=== PATIENT | male | born 1980 | race Caucasian/White ===

== ENCOUNTER 2019-02-01 11:39 | Emergency (ER) | payer OTHER, SELFPAY ==
[2019-02-01 11:42] VITALS: BP 145/85; PULSE 124; RESP 16; TEMP 36.5; O2SAT 99; BMI 32.5
[2019-02-01] MEDS: TET,DIPH,PERTUSS(ACELL),VAC/PF 0.5 ML SYRINGE IM (11:50)
--- NOTE | 2019-02-01 11:55 | PC.NURSE ---
Pt has laceration through nail bed
--- NOTE | 2019-02-01 12:09 | DI.RAD.S_ITS ---
PROCEDURE: XR FINGER LT MIN 2V INDICATIONS: middle finger injury TECHNIQUE: AP hand, 2 views of the left third finger(s) acquired. COMPARISON: None. FINDINGS: Bones: No fractures or dislocations. No suspicious bony lesions. Short fifth metacarpal. Soft tissues: No suspicious soft tissue calcifications. IMPRESSION: No acute fracture. No osseous lesion. If symptoms or clinical suspicion for pathology persists, repeat plain films, or advanced imaging (CT, bone scan, or MRI) may be helpful for further assessment. Dictated by: Afsaneh Preston M.D. on 02/01/2019 at 11:36 Approved by: Afsaneh Preston M.D. on 02/01/2019 at 11:37
[2019-02-01] MEDS: KETOROLAC 60 MG/2 ML VIAL IM (12:44)
--- NOTE | 2019-02-01 13:08 | ED_ITS ---
HPI - Wound/Laceration <JUAN MANUEL Garza - Last Filed: 02/01/19 13:50> General Chief Complaint: Wound/Laceration Stated Complaint: Middle finger lt hand cut Time Seen by Provider: 02/01/19 12:04 Source: patient Mode of arrival: ambulatory Limitations: no limitations History of Present Illness HPI narrative: The patient is a 38-year-old male current smoker who presents after chief complaint of a laceration to his left middle finger. 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 He does not know when his last tetanus was. He states he has full range of motion. He states he washed the laceration out with soap and water immediately after. He states his cut was a flap. Related Data Allergies Allergy/AdvReac Type Severity Reaction Status Date / Time No Known Drug Allergies Allergy Verified 02/01/19 11:42 Review of Systems <JUAN MANUEL Garza - Last Filed: 02/01/19 13:50> Review of Systems GENERAL: Denies chills, fatigue, malaise, fever, sweats. HEENT: Denies sinus pain, ear pain, sore throat, difficulty swallowing, dizziness. RESPIRATORY: Denies dyspnea, cough, wheezing, hemoptysis, sputum. CARDIOVASCULAR: Denies chest pain, palpitations, orthopnea, edema, GASTROINTESTINAL: Denies nausea, vomiting, abdominal pain, diarrhea, constipation, melena. : Denies dysuria, frequency, incontinence, hematuria, urinary retention. MUSCULOSKELETAL: See HPI SKIN: See HPI NEUROLOGIC: Denies weakness, headache, numbness, change in speech, confusion, seizures, incoordination. PSYCHIATRIC: No concerning psychosocial issues. 12 point review of systems is negative except for those stated above PFSH <JUAN MANUEL Garza - Last Filed: 02/01/19 13:50> Medical History Medical history non-contributory (Acute) Social History Smoking Status: Current every day smoker Social History Smoking Status: Current every day smoker Exam <SONIA GarzaBC - Last Filed: 02/01/19 13:50> Narrative Exam Narrative: GENERAL: This is a well-nourished, well-developed patient, appears anxious HEAD: Atraumatic. Normocephalic. No temporal or scalp tenderness. EYES: Pupils equal round and reactive. Extraocular motions intact. No scleral icterus. No injection or drainage. ENT: Nose without bleeding, purulent drainage or septal hematoma. Throat without erythema, tonsillar hypertrophy or exudate. Uvula midline. Airway patent. NECK: Trachea midline. No JVD or lymphadenopathy. Supple, nontender, no meningeal signs. CARDIOVASCULAR: Regular rate and rhythm RESPIRATORY: No cough. No increased respiratory effort. No accessory muscle use. EXTREMITIES: Full range of motion noted left middle finger. Capillary refill less than 2 seconds. BACK: Nontender without deformity or crepitance. No flank tenderness. NEURO: AOx3. SKIN: Laceration noted through center of left middle finger nail, creating a flap of 0.5 cm of nail connected at the lateral side. No active bleeding. No spreading redness. Capillary refill less than 2 seconds. Flap appears to be about 2-3 mm stay. Initial Vital Signs Initial Vital Signs: Vital Signs Temperature 97.7 F 02/01/19 11:42 Pulse Rate 124 H 02/01/19 11:42 Respiratory Rate 16 02/01/19 11:42 Blood Pressure 145/85 H 02/01/19 11:42 Pulse Oximetry 99 02/01/19 11:42 <Genoveva Richter MD - Last Filed: 02/01/19 19:55> Initial Vital Signs Initial Vital Signs: Vital Signs Temperature 97.7 F 02/01/19 11:42 Pulse Rate 124 H 02/01/19 11:42 Respiratory Rate 16 02/01/19 11:42 Blood Pressure 145/85 H 02/01/19 11:42 Pulse Oximetry 99 02/01/19 11:42 Course <SONIA GarzaBC - Last Filed: 02/01/19 13:50> Orders Ordered: ED Orders 02/01/19 12:09 XR finger LT min 2V Stat Discontinued Medications Diphtheria/Tetanus/Acell Pertussis (Adacel) 0.5 ml IM .ONCE ONE Stop: 02/01/19 11:45 Last Admin: 02/01/19 11:50 Dose: 0.5 ml Ketorolac Tromethamine (Toradol) 60 mg IM NOW ONE Stop: 02/01/19 12:25 Last Admin: 02/01/19 12:44 Dose: 60 mg Vital Signs - 8 hr 02/01/19 13:21 Pulse Rate 91 H Blood Pressure 143/91 H Pulse Oximetry 97 <Genoveva Richter MD - Last Filed: 02/01/19 19:55> Orders Ordered: ED Orders 02/01/19 12:09 XR finger LT min 2V Stat Discontinued Medications Diphtheria/Tetanus/Acell Pertussis (Adacel) 0.5 ml IM .ONCE ONE Stop: 02/01/19 11:45 Last Admin: 02/01/19 11:50 Dose: 0.5 ml Ketorolac Tromethamine (Toradol) 60 mg IM NOW ONE Stop: 02/01/19 12:25 Last Admin: 02/01/19 12:44 Dose: 60 mg Vital Signs - 8 hr 02/01/19 13:21 Pulse Rate 91 H Blood Pressure 143/91 H Pulse Oximetry 97 MDM - Wound/Laceration <JUAN MANUEL Garza - Last Filed: 02/01/19 13:50> Imaging Data finger xray : Radiologist's impression: [place] [address] XRay Report Signed Patient: John Paul Wright PMR#: [id number] : 1980Acct:[id number] Age/Sex: 38 / MDate of Service: 02/01/19 Loc: ED Accession Number: [id number] Procedure: XR finger LT min 2V Ordering Provider: Amisha Fernandez PROCEDURE: XR FINGER LT MIN 2V INDICATIONS: middle finger injury TECHNIQUE: AP hand, 2 views of the left third finger(s) acquired. COMPARISON: None. FINDINGS: Bones: No fractures or dislocations. No suspicious bony lesions. Short fifth metacarpal. Soft tissues: No suspicious soft tissue calcifications. IMPRESSION: No acute fracture. No osseous lesion. If symptoms or clinical suspicion for pathology persists, repeat plain films, or advanced imaging (CT, bone scan, or MRI) may be helpful for further assessment. Dictated by: Afsaneh Preston M.D. on 02/01/2019 at 11:36 Approved by: Afsaneh Preston M.D. on 02/01/2019 at 11:37 [facility] [place] Narrative Medical decision making narrative: The patient is a 38-year-old male who presents with a chief complaint of a laceration. Given his presentation, and unable to close the laceration his tetanus was updated. His x-ray was negative. The wound was cleansed with Hibiclens and dressed by nursing. Discussed at length following up with a [facility] [employer] provider for follow-up as well as monitoring for signs and symptoms of infection such as redness pus etc. Patient has no questions or concerns upon discharge. Discussed coming back to the ER for any acute concerns. Discharge Plan Departure Patient Disposition: Home Clinical Impression: Laceration Discharge Date/Time: 02/01/19 13:21 Interventions: ED Discharge Assessment Last Done: 02/01/19 13:21 Instructions: DI for Minor Laceration Activity Restrictions/Additional Instructions: Please monitor your laceration for signs and symptoms of infection such as redness, pus. Please come back to the emergency department for any acute concerns. Please contact [facility] [employer] for follow-up. Today we updated your tetanus. Please do not submerge your cut and dirty water such as just water.
[2019-02-01 13:21] VITALS: BP 143/91; PULSE 91; O2SAT 97
== END 2019-02-01 13:21 | disposition home or self-care (01) ==
PROVIDERS: Emergency Provider Nurse Practitioner Family
DX: S61.213A Laceration without foreign body of left middle finger without damage to nail, initial encounter (principal); W26.8XXA Contact with other sharp object(s), not elsewhere classified, initial encounter; Y99.0 Civilian activity done for income or pay; Z23 Encounter for immunization
CPT/HCPCS: 73140; 90471; 96372; 99283; 90715; J1885

== ENCOUNTER → 2019-05-15 10:03 | Outpatient (CLI) | payer OTHER, MEDICAID, SELFPAY ==
--- NOTE | 2019-05-15 10:04 | DI.RAD.S_ITS ---
PROCEDURE: XR THORACIC SPINE 3V INDICATIONS: Tenderness to thoracic spine, felt a pop TECHNIQUE: 3 views of the thoracic spine were acquired. COMPARISON: None. FINDINGS: Bones: No fractures or dislocations. No suspicious bony lesions. 12 pairs of ribs are noted, and appear intact where visualized. Mild multilevel degenerative disc changes. Soft tissues: No paravertebral stripe thickening. IMPRESSION: 1. Mild multilevel degenerative disc disease. 2. No fracture. No acute osseous lesion. If symptoms and/or clinical suspicion for pathology persists, evaluation with MRI may be helpful for further assessment. Dictated by: Georgina May MD, PhD on 05/15/2019 at 10:22 Approved by: Georgina May MD, PhD on 05/15/2019 at 10:23
--- NOTE | 2019-05-15 10:04 | DI.RAD.S_ITS ---
PROCEDURE: XR LUMBAR SPINE 2-3V INDICATIONS: Tenderness to spine, felt a pop TECHNIQUE: 3 views of the lumbar spine were acquired. COMPARISON: None. FINDINGS: Bones: 5 [id number] vertebrae are present with vestigial 12th ribs. There is normal bony alignment. No vertebral body compression fractures. No suspicious bony lesions. Soft tissues: Overlying bowel gas pattern is normal. A cluster of calcifications project over the left renal shadow. IMPRESSION: 1. No fracture. No acute osseous lesion. If symptoms and/or clinical suspicion for pathology persists, evaluation with MRI may be helpful for further assessment. 2. Possible left renal stones. If there is clinical concern for pathology related to renal stones, CT KUB should be considered for further evaluation. Dictated by: Georgina May MD, PhD on 05/15/2019 at 10:20 Approved by: Georgina May MD, PhD on 05/15/2019 at 10:21
== END ==
PROVIDERS: PCP Nurse Practitioner; Visit Provider Nurse Practitioner
DX: M54.9 Dorsalgia, unspecified (principal); M51.34 Other intervertebral disc degeneration, thoracic region
CPT/HCPCS: 72072; 72100

== ENCOUNTER → 2019-06-26 08:51 | Outpatient (CLI) | payer OTHER, MEDICAID, SELFPAY ==
[2019-06-26 10:06] LABS: Add Manual Diff / Slide Review NO; Alanine Aminotransferase 33 IU/L (<50); Albumin 4.7 g/dL (3.5-5.0); Albumin Globulin Ratio 1.6 (1.0-2.8); Alkaline Phosphatase 88 U/L (38-126); Aspartate Aminotransferase 28 IU/L (17-59); BUN Creatinine Ratio 16.7 (6-22); Basophils Absolute Auto 100 /uL (0-100); Basophils Percent Auto 0.6 % (0-2); Bilirubin Total 0.7 mg/dL (0.2-1.3); Blood Urea Nitrogen 15 mg/dL (9-20); Calcium 9.3 mg/dL (8.4-10.2); Carbon Dioxide 28 mmol/L (22-32); Chloride 105 mmol/L (98-107); Cholesterol 238 mg/dL (140-199); Eosinophils Absolute Auto 300 /uL (0-450); Eosinophils Percent Auto 2.7 % (2-4); Estimated Glomerular Filt Rate > 60.0 mL/min (>60); Glucose 102 mg/dL (70-100); HDL Cholesterol 34 mg/dL (40-60); HEMOLYSIS < 15 (0-50); Hematocrit 45.9 % (41-53); Hemoglobin 15.5 g/dL (13.5-17.5); LDL Cholesterol Calculated 173 mg/dL (<100); Lymphocytes Absolute Auto 3300 /uL (1100-4500); Lymphocytes Percent Auto 33.8 % (25-40); Mean Corpuscular HGB Conc 33.9 % (30-36); Mean Corpuscular Hemoglobin 30.1 PG (26-34); Monocytes Absolute Auto 700 /uL (0-900); Monocytes Percent Auto 6.7 % (3-14); Neutrophils Absolute Auto 5500 /uL (1500-7000); Neutrophils Percent Auto 56.2 % (50-75); Platelet Count 292 X10^3/uL (150-400); Potassium 4.9 mmol/L (3.4-5.1); Red Blood Cell Count 5.16 X10^6/uL (4.5-5.9); Red Cell Distribution Width 12.8 % (11.6-14.8); Sodium 140 mmol/L (137-145); Total Protein 7.7 g/dL (6.3-8.2); Triglycerides 153 mg/dL (35-150); White Blood Cell Count 9.7 X10^3/uL (4.5-11.0)
[2019-06-26 10:44] LABS: Free T3, Triiodothyronine Free 4.17 pg/mL (2.77-5.27)
[2019-06-26 10:58] LABS: Thyroid Stimulating Hormone 1.49 uIU/mL (0.47-4.68)
== END ==
PROVIDERS: PCP Nurse Practitioner; Visit Provider Nurse Practitioner
DX: Z00.00 Encounter for general adult medical examination without abnormal findings (principal)
CPT/HCPCS: 36415; 80053; 80061; 84439; 84443; 84481; 85025

== ENCOUNTER → 2019-07-04 10:52 | Outpatient (CLI) | payer OTHER, MEDICAID, SELFPAY ==
--- NOTE | 2019-07-04 10:55 | DI.MRI.S_ITS ---
PROCEDURE: MR LUMBAR SPINE WO CON INDICATIONS: back pain TECHNIQUE: Noncontrast sagittal T1 spin echo and T2 fast echo, sagittal STIR, axial T1 and T2 fast spin echo through the lumbar spine. In cases with scoliosis, additional coronal T2 fast spin echo may be performed. COMPARISON: [facility], CR, XR LUMBAR SPINE 2-3V, 05/15/2019, 10:05. FINDINGS: Image quality: Excellent. Alignment and Curvature: There is normal bony alignment. Bone Marrow: Marrow is of normal overall signal. No acute vertebral body compression fractures. Spinal Cord: Conus medullaris terminates at the T12-L1 level. Visualized cord demonstrates normal signal and size. Paraspinous Soft Tissues: No paravertebral masses. T12-L1: No canal stenosis or foraminal stenosis. Unremarkable facet joints. L1-L2: Normal appearance. L2-L3: Normal appearance. L3-L4: Normal appearance L4-L5: Mild diffuse disc bulge. Disc material abuts the bilateral L5 nerve roots in the lateral recesses. Mild facet hypertrophy. Mild canal stenosis. No foraminal stenosis. L5-S1: No canal stenosis or foraminal stenosis. IMPRESSION: 1. At L4-L5, there is mild disc bulge and mild facet hypertrophy. There is mild canal stenosis. Disc material abuts the bilateral L5 nerve roots in the lateral recesses. Dictated by: Goyo Castro M.D. on 07/04/2019 at 21:10 Approved by: Goyo Castro M.D. on 07/04/2019 at 21:14
== END ==
PROVIDERS: PCP Nurse Practitioner; Visit Provider Nurse Practitioner
DX: M54.9 Dorsalgia, unspecified (principal); M51.36 Other intervertebral disc degeneration, lumbar region; M51.26 Other intervertebral disc displacement, lumbar region
CPT/HCPCS: 72148

== ENCOUNTER 2019-08-19 11:43 | Emergency (ER) | payer OTHER, MEDICAID, SELFPAY ==
[2019-08-19 11:45] VITALS: BP 152/99; PULSE 138; RESP 18; O2SAT 98
--- NOTE | 2019-08-19 11:48 | ED_ITS ---
HPI - Arrhythmia/Palpitations General Chief Complaint: Arrhythmia/Palpitations Stated Complaint: HEART FLUTTERING Time Seen by Provider: 08/19/19 11:47 Source: patient Mode of arrival: Ambulatory Limitations: no limitations History of Present Illness HPI narrative: Patient is a 38-year-old male who presents with heart palpitations ongoing for the last 3 days. He says they come and go he denies any passing out or chest pain. He just feels like his heart is racing. He admits to drinking at least 3 cups of coffee a day but not more than that. He denies any chest pain or shortness of breath. He still felt initially when he 1st came in was noted to have heart rate in the 130s in a sinus rhythm. It is decreased on the monitor to 98 and then does come up into the 110's while talking to him. He says he is quite anxious and nervous about things. He has been feeling a little nauseous often on doesn't feel nauseated now he has no abdominal pain. He has no weakness numbness or tingling. MD complaint: heart racing Onset (ago): day(s) (3) Duration: intermittent Severity: mild Context: occurred during rest and occurred during exertion Associated symptoms: denies other symptoms Related Data Home Medications Medication Instructions Recorded Confirmed baclofen 5 mg PO TID-QID PRN 08/19/19 Previous Rx's Medication Instructions Recorded citalopram 10 mg tablet 10 mg PO DAILY #30 tab 07/10/19 gabapentin 100 mg capsule 100 mg PO BEDTIME #30 cap 07/23/19 Allergies Allergy/AdvReac Type Severity Reaction Status Date / Time No Known Drug Allergies Allergy Verified 08/19/19 11:53 Review of Systems Review of Systems Narrative: GENERAL: Denies chills, fatigue, malaise, fever, sweats, travel HEENT: Denies sinus pain, ear pain, sore throat, difficulty swallowing, neck pain RESPIRATORY: Denies dyspnea, cough, wheezing, hemoptysis, sputum. CARDIOVASCULAR: See HPI GASTROINTESTINAL: Denies nausea, vomiting, abdominal pain, diarrhea, constipation, melena. : Denies dysuria, frequency, incontinence, hematuria, urinary retention, flank pain. MUSCULOSKELETAL: Denies weakness, joint pain, or bony pain SKIN: No rash, no erythema, no pruritus NEUROLOGIC: Denies weakness, dizziness, headache, numbness, change in speech, confusion PSYCHIATRIC: No concerning psychosocial issues. 12 point review of systems is negative except for those stated above and HPI Patient History Medical History Anxiety (Chronic) Bee sting allergy (Acute) Chronic pain of thorax (Acute) Depression (Chronic) Medical history non-contributory (Acute) Surgical History Anesthesia (Inactive) History of foot surgery (Resolved ~1992) Family History Father History of heart disease Mother ETOH abuse History of heart disease Brother Alcoholism Grandfather Cancer History of heart disease Grandmother History of heart disease Social History Smoking Status: Current every day smoker Smoking Status: Current every day smoker alcohol intake frequency: holidays/special occasions only Substance Use Type: does not use and marijuana Exam Initial Vital Signs Initial Vital Signs: Vital Signs Pulse Rate 138 H 08/19/19 11:45 Respiratory Rate 18 08/19/19 11:45 Blood Pressure 152/99 H 08/19/19 11:45 Pulse Oximetry 98 08/19/19 11:45 GENERAL: Well-appearing, well-nourished and in no acute distress. HEENT: Head atraumatic,EOMI, pupils reactive, face symmetric, moist mucous membranes CARDIOVASCULAR: Regular rate and rhythm without murmurs, rubs or gallops. RESPIRATORY: Breath sounds equal bilaterally, no wheezes rales or rhonchi. ABDOMEN: Soft, nontender. Normoactive bowel sounds all 4 quadrants. No guarding or rebound. : No CVA tenderness EXTREMITIES: Normal range of motion, no clubbing or edema. Neurovascularly intact NEUROLOGICAL: Alert and oriented x4.Normal gait and speech. SKIN: Warm, dry, no laceration, no petechiae, no rashes or lesions. Course Orders Ordered: ED Orders 08/19/19 11:54 XR chest 1V Stat Complete Blood Count AUTO DIFF Stat Comprehensive Metabolic Panel Stat Lipase Stat Magnesium Stat Partial Thromboplastin Time Stat Prothrombin Time INR Stat Troponin & CK Cardiac Panel Stat EKG-12 Lead Stat Discontinued Medications Sodium Chloride (Normal Saline 0.9%) 1,000 mls @ 1,000 mls/hr IV BOLUS ONE Stop: 08/19/19 12:58 Last Infusion: 08/19/19 13:20 Dose: 0 mls/hr Documented by: Admin: 08/19/19 12:15 Dose: 1,000 mls/hr Documented by: SHANELL Vital Signs Vital signs: Vital Signs - 8 hr 08/19/19 11:45 08/19/19 12:15 08/19/19 12:45 Pulse Rate 138 H 86 64 Respiratory Rate 18 17 15 Blood Pressure 152/99 H Blood Pressure [Left Arm] 118/90 113/83 Pulse Oximetry 98 96 93 08/19/19 13:34 Pulse Rate 72 Respiratory Rate 15 Blood Pressure 121/90 Blood Pressure [Left Arm] Pulse Oximetry 95 MDM - Arrhythmia/Palpitations Lab Data Attestation: I reviewed the patient's lab results. Result diagrams: 08/19/19 11:54 08/19/19 11:54 Labs: Lab Results 08/19/19 08/19/19 08/19/19 Range/Units 11:54 11:54 11:54 WBC 11.1 H (4.5-11.0) X10^3/uL RBC 5.28 (4.5-5.9) X10^6/uL Hgb 16.4 (13.5-17.5) g/dL Hct 47.1 (41-53) % MCV 89.3 (80-100) fL MCH 31.0 (26-34) PG MCHC 34.8 (30-36) % RDW 12.7 (11.6-14.8) % Plt Count 286 (150-400) X10^3/uL Neut % (Auto) 49.2 L (50-75) % Lymph % (Auto) 39.7 (25-40) % Marshall % (Auto) 7.0 (3-14) % Eos % (Auto) 3.3 (2-4) % Baso % (Auto) 0.8 (0-2) % Neut # (Auto) 5400 (1524-5659) /uL Lymph # (Auto) 4400 (7233-7799) /uL Marshall # (Auto) 800 (0-900) /uL Eos # (Auto) 400 (0-450) /uL Baso # (Auto) 100 (0-100) /uL PT 11.7 (10.1-12.7) SECONDS INR 1.0 (0.9-1.3) APTT 36 (26.4-36.2) SECONDS Sodium 137 (137-145) mmol/L Potassium 4.2 (3.4-5.1) mmol/L Chloride 103 (98-107) mmol/L Carbon Dioxide 24 (22-32) mmol/L BUN 12 (9-20) mg/dL Creatinine 0.80 (0.66-1.25) mg/dL Estimated GFR > 60.0 (>60) mL/min BUN/Creatinine Ratio 15.0 (6-22) Glucose 106 H (70-100) mg/dL Calcium 9.7 (8.4-10.2) mg/dL Magnesium 1.7 (1.6-2.3) mg/dL Total Bilirubin 0.6 (0.2-1.3) mg/dL AST 26 (17-59) IU/L ALT 22 (<50) IU/L Alkaline Phosphatase 103 (38-126) U/L Total Creatine Kinase 73 (55-170) U/L CK-MB (CK-2) TNP CK-MB (CK-2) Rel Index TNP Troponin I < 0.012 (0.01-0.034) ng/mL Total Protein 7.9 (6.3-8.2) g/dL Albumin 4.8 (3.5-5.0) g/dL Globulin 3.1 (1.7-4.1) g/dL Albumin/Globulin Ratio 1.5 (1.0-2.8) Lipase 45 (23-300) U/L Imaging Data Chest x-ray: Radiologist's Impresson: PROCEDURE: XR CHEST 1V INDICATIONS: chest pain TECHNIQUE: One view of the chest was acquired. COMPARISON: None. FINDINGS: Surgical changes and devices: None. Lungs and pleura: Lungs are clear. No pleural effusions or pneumothorax. Mediastinum: Mediastinal contours appear normal. Heart size is normal. Bones and chest wall: No suspicious bony lesions. Overlying soft tissues appear unremarkable. IMPRESSION: No acute cardiopulmonary disease process. Dictated by: Georgina May MD, PhD on 08/19/2019 at 12:34 ECG Data Attestation: I personally reviewed and interpreted this ECG as follows: Prior ECG tracings: not available for review Interpretation: Sinus tachycardia rate 123, p.r. interval [address] QRS [address] elevation depression or T-wave inversions no priors to compare MDM Narrative Medical decision making narrative: Patient is overall feeling better. Heart ra te has improved with IV fluids. Recommend he increase his fluid intake and cut down on his caffeine intake. Also recommend possible is Holter monitor as outpatient. Discharge Plan Departure Patient Disposition: Home Clinical Impression: Palpitations Discharge Date/Time: 08/19/19 13:35 Instructions: DI for Palpitations Activity Restrictions/Additional Instructions: *You have been diagnosed with palpitations *What to do: At this time blood work is overall reassuring recommend cutting back caffeine use and increasing fluid intake *Continue to take medications as directed *Follow up with your primary care provider in 2-3 days *Return to ER if you should have CC palpitations dizziness lightheadedness or any new, worsening or concerning symptoms Prescriptions: No Action gabapentin 100 mg capsule 100 mg PO BEDTIME Qty: 30 RF: 0 citalopram 10 mg tablet 10 mg PO DAILY Qty: 30 RF: 2 baclofen 10 mg tablet 5 mg PO TID-QID PRN (Reason: Muscle Spasm) RF: 0 Referrals: Melissa Bedolla ARNP [Primary Care Provider] -
--- NOTE | 2019-08-19 11:54 | DI.RAD.S_ITS ---
PROCEDURE: XR CHEST 1V INDICATIONS: chest pain TECHNIQUE: One view of the chest was acquired. COMPARISON: None. FINDINGS: Surgical changes and devices: None. Lungs and pleura: Lungs are clear. No pleural effusions or pneumothorax. Mediastinum: Mediastinal contours appear normal. Heart size is normal. Bones and chest wall: No suspicious bony lesions. Overlying soft tissues appear unremarkable. IMPRESSION: No acute cardiopulmonary disease process. Dictated by: Georgina May MD, PhD on 08/19/2019 at 12:34 Approved by: Georgina May MD, PhD on 08/19/2019 at 12:34
[2019-08-19 12:07] LABS: Add Manual Diff / Slide Review NO; Basophils Absolute Auto 100 /uL (0-100); Basophils Percent Auto 0.8 % (0-2); Eosinophils Absolute Auto 400 /uL (0-450); Eosinophils Percent Auto 3.3 % (2-4); Hematocrit 47.1 % (41-53); Hemoglobin 16.4 g/dL (13.5-17.5); Lymphocytes Absolute Auto 4400 /uL (1100-4500); Lymphocytes Percent Auto 39.7 % (25-40); Mean Corpuscular HGB Conc 34.8 % (30-36); Mean Corpuscular Volume 89.3 fL (80-100); Monocytes Absolute Auto 800 /uL (0-900); Neutrophils Absolute Auto 5400 /uL (1500-7000); Neutrophils Percent Auto 49.2 % (50-75); Platelet Count 286 X10^3/uL (150-400); Red Blood Cell Count 5.28 X10^6/uL (4.5-5.9); Red Cell Distribution Width 12.7 % (11.6-14.8); White Blood Cell Count 11.1 X10^3/uL (4.5-11.0)
[2019-08-19 12:15] VITALS: BP 118/90; PULSE 86; RESP 17; O2SAT 96
[2019-08-19] MEDS: SODIUM CHLORIDE 0.9% 1,000 ML 1000 ML IV (12:15)
[2019-08-19 12:22] LABS: Alanine Aminotransferase 22 IU/L (<50); Albumin 4.8 g/dL (3.5-5.0); Albumin Globulin Ratio 1.5 (1.0-2.8); Alkaline Phosphatase 103 U/L (38-126); Aspartate Aminotransferase 26 IU/L (17-59); Bilirubin Total 0.6 mg/dL (0.2-1.3); Blood Urea Nitrogen 12 mg/dL (9-20); Calcium 9.7 mg/dL (8.4-10.2); Carbon Dioxide 24 mmol/L (22-32); Chloride 103 mmol/L (98-107); Creatine Kinase 73 U/L (55-170); Estimated Glomerular Filt Rate > 60.0 mL/min (>60); Globulin 3.1 g/dL (1.7-4.1); Glucose 106 mg/dL (70-100); HEMOLYSIS < 15 (0-50); Lipase 45 U/L (23-300); Magnesium 1.7 mg/dL (1.6-2.3); Potassium 4.2 mmol/L (3.4-5.1); Sodium 137 mmol/L (137-145); Total Protein 7.9 g/dL (6.3-8.2)
[2019-08-19 12:24] LABS: Prothrombin Time 11.7 SECONDS (10.1-12.7)
[2019-08-19 12:27] LABS: PTT Partial Thromboplastin Tim 36 SECONDS (26.4-36.2)
[2019-08-19 12:32] LABS: Troponin I < 0.012 ng/mL (0.01-0.034)
[2019-08-19 12:45] VITALS: BP 113/83; PULSE 64; RESP 15; O2SAT 93
[2019-08-19 13:34] VITALS: BP 121/90; PULSE 72; RESP 15; O2SAT 95
== END 2019-08-19 13:35 | disposition home or self-care (01) ==
PROVIDERS: Emergency Provider Emergency Medicine; PCP Nurse Practitioner
DX: R00.2 Palpitations (principal)
CPT/HCPCS: 36415; 71045; 80053; 82550; 83690; 83735; 84484; 85025; 85610; 85730; 93005; 96360; 99284; 99285

== ENCOUNTER 2019-08-27 13:09 | Emergency (ER) | payer OTHER, MEDICAID, SELFPAY ==
[2019-08-27 13:14] VITALS: PULSE 104; RESP 20; TEMP 36.3; O2SAT 96; BMI 33.5
--- NOTE | 2019-08-27 14:12 | PC.NURSE ---
pt report evaluated last week , with workup , pt to follow up with md for residential monitor , unable due to weather, unable to get out of the driveway, making pt anxious, reports, light headed, with palpitation, lasting seconds. has been taping off coffee, 2 cups in 12 weeks.
--- NOTE | 2019-08-27 14:14 | DI.RAD.S_ITS ---
PROCEDURE: XR CHEST 1V INDICATIONS: chest pain TECHNIQUE: One view of the chest was acquired. COMPARISON: [facility], CR, XR CHEST 1V, 08/19/2019, 12:21. FINDINGS: Surgical changes and devices: None. Lungs and pleura: Lungs are clear. No pleural effusions or pneumothorax. Mediastinum: Mediastinal contours appear normal. Heart size is normal. Bones and chest wall: No suspicious bony lesions. Overlying soft tissues appear unremarkable. IMPRESSION: No acute cardiopulmonary disease process. Dictated by: Georgina May MD, PhD on 08/27/2019 at 14:25 Approved by: Georgina May MD, PhD on 08/27/2019 at 14:25
[2019-08-27 14:36] LABS: Add Manual Diff / Slide Review NO; Basophils Absolute Auto 100 /uL (0-100); Basophils Percent Auto 0.6 % (0-2); Eosinophils Absolute Auto 200 /uL (0-450); Eosinophils Percent Auto 1.6 % (2-4); Hematocrit 46.3 % (41-53); Lymphocytes Absolute Auto 2200 /uL (1100-4500); Lymphocytes Percent Auto 20.6 % (25-40); Mean Corpuscular HGB Conc 34.4 % (30-36); Mean Corpuscular Hemoglobin 31.1 PG (26-34); Mean Corpuscular Volume 90.5 fL (80-100); Monocytes Absolute Auto 700 /uL (0-900); Monocytes Percent Auto 6.4 % (3-14); Neutrophils Absolute Auto 7600 /uL (1500-7000); Neutrophils Percent Auto 70.8 % (50-75); Platelet Count 267 X10^3/uL (150-400); Red Blood Cell Count 5.12 X10^6/uL (4.5-5.9); Red Cell Distribution Width 13.2 % (11.6-14.8); White Blood Cell Count 10.8 X10^3/uL (4.5-11.0)
[2019-08-27 14:44] LABS: Prothrombin Time 11.8 SECONDS (10.1-12.7)
[2019-08-27 14:46] LABS: PTT Partial Thromboplastin Tim 35 SECONDS (26.4-36.2)
[2019-08-27 14:48] LABS: Alanine Aminotransferase 21 IU/L (<50); Albumin 4.6 g/dL (3.5-5.0); Albumin Globulin Ratio 1.4 (1.0-2.8); Alkaline Phosphatase 101 U/L (38-126); Aspartate Aminotransferase 24 IU/L (17-59); BUN Creatinine Ratio 12.9 (6-22); Bilirubin Total 0.6 mg/dL (0.2-1.3); Blood Urea Nitrogen 9 mg/dL (9-20); Calcium 9.8 mg/dL (8.4-10.2); Carbon Dioxide 28 mmol/L (22-32); Chloride 102 mmol/L (98-107); Creatine Kinase 102 U/L (55-170); Estimated Glomerular Filt Rate > 60.0 mL/min (>60); Globulin 3.2 g/dL (1.7-4.1); Glucose 99 mg/dL (70-100); HEMOLYSIS < 15 (0-50); Lipase 61 U/L (23-300); Potassium 4.1 mmol/L (3.4-5.1); Sodium 139 mmol/L (137-145); Total Protein 7.8 g/dL (6.3-8.2)
--- NOTE | 2019-08-27 14:54 | ED_ITS ---
HPI - Arrhythmia/Palpitations General Chief Complaint: Arrhythmia/Palpitations Stated Complaint: Racing heart, irregular heart issues Time Seen by Provider: 08/27/19 13:42 Source: patient and family Mode of arrival: Ambulatory Limitations: no limitations History of Present Illness HPI narrative: Patient returns to the emergency department after being seen for palpitations last week. The patient states that he was told by his doctor's office to come back to the ED for further evaluation since he missed his appoi ntment yesterday to get his Zio monitor placed, due to the snow. The patient denies any chest pain or shortness breath. No nausea vomiting. No diaphoresis or lightheadedness. He states that his palpitations did seem more frequent today, and this made him worried. He states that he feels runs of several flutters and then he can feel his heart go back into a normal rhythm. He states that for a while, this was happening every several minutes. It seems to have calmed down somewhat now though. The patient states he has no cardiac history. He does not have any history of hypertension or thyroid issues. He states he has been a very heavy caffeine drinker until about a week ago, and was drinking many cups of coffee and 1 day, as well as caffeinated soda. He states that he has had 1 cup of coffee and a can of soda in the last few days. No other complaints at this time. Related Data Home Medications Medication Instructions Recorded Confirmed baclofen 5 mg PO TID-QID PRN 08/19/19 Previous Rx's Medication Instructions Recorded citalopram 10 mg tablet 10 mg PO DAILY #30 tab 07/10/19 gabapentin 100 mg capsule 100 mg PO BEDTIME #30 cap 07/23/19 metoprolol succinate 25 mg PO DAILY #7 each 08/27/19 Allergies Allergy/AdvReac Type Severity Reaction Status Date / Time No Known Drug Allergies Allergy Verified 08/27/19 13:13 Review of Systems Constitutional Constitutional: Denies chills, Denies fatigue, Denies fever(s), Denies frequent falls, Denies lethargy and Denies weakness Eyes Eyes: Denies change in vision, Denies eye discharge, Denies irritation and Denies loss of vision ENT Ears, Nose, Mouth, and Throat: Denies change in voice, Denies dizziness, Denies neck pain, Denies sore throat and Denies throat swelling Cardiovascular Cardiovascular: Denies chest pain, Denies irregular heart rhythm, Denies lightheadedness, Reports palpitations, Denies dyspnea, Denies dyspnea on exertion and Denies orthopnea Respiratory Respiratory: Denies cough, Denies dyspnea, Denies dyspnea on exertion and Denies wheezing Gastrointestinal Gastrointestinal: Denies abdominal pain, Denies change in bowel habits, Denies diarrhea, Denies nausea and Denies vomiting Genitourinary Genitourinary: Denies hematuria, Denies flank pain, Denies urinary incontinence and Denies urinary urgency Musculoskeletal Musculoskeletal: Denies back pain, Denies muscle weakness, Denies neck pain, Denies numbness and Denies tingling Integumentary/Breasts Skin/Breast: Denies pruritus, Denies erythema, Denies rash and Denies wounds Neurologic Neurologic: Denies behavioral changes, Denies confusion, Denies dizziness, Denies frequent falls, Denies loss of vision, Denies numbness, Denies tingling and Denies weakness Psychiatric Psychiatric: Denies anxiety, Denies behavioral changes, Denies confusion, Denies depression, Denies homicidal ideation and Denies suicidal ideation Endocrine Endocrine: Denies fatigue, Denies flushing and Reports palpitations Hematologic/Lymphatic Hematologic/Lymphatic: Denies easy bruising Allergic/Immunologic Allergic/Immunologic: Denies urticaria, Denies throat swelling and Denies wheezing Patient History Medical History Anxiety (Chronic) Bee sting allergy (Acute) Chronic pain of thorax (Acute) Depression (Chronic) Medical history non-contributory (Acute) Surgical History Anesthesia (Inactive) History of foot surgery (Resolved ~1992) Family History Father History of heart disease Mother ETOH abuse History of heart disease Brother Alcoholism Grandfather Cancer History of heart disease Grandmother History of heart disease Social History Smoking Status: Current every day smoker Smoking Status: Current every day smoker alcohol intake frequency: holidays/special occasions only Substance Use Type: does not use and marijuana Exam Initial Vital Signs Initial Vital Signs: Vital Signs Temperature 97.3 F L 08/27/19 13:14 Pulse Rate 104 H 08/27/19 13:14 Respiratory Rate 20 08/27/19 13:14 Pulse Oximetry 96 08/27/19 13:14 Const General: cooperative and well developed Nutritional Appearance: well nourished [facility] Head: normocephalic and atraumatic Ears: external ears normal Nose: external nose normal and No nasal discharge Face and sinus: face symmetric and No dry mucous membranes Mouth: oral mucosae normal and moist mucous membranes Teeth and gingiva: dentition normal Eyes General: appearance normal, both eyes and all related structures Eyelids: eyelids normal Conjunctivae: conjunctivae normal Sclera: sclerae normal Pupils: PERRL EOM: EOM intact bilaterally Neck Neck: normal visual inspection, trachea midline, No lymphadenopathy, No midline deformity and No JVD Lymphatic: No lymphedema Chest Chest: normal inspection of the chest Resp Effort & Inspection: normal respiratory effort, able to speak in complete sentences, no respiratory distress and no use of accessory muscles Auscultation: clear to auscultation bilaterally, no rales, no rhonchi and no wheezes Cardio Rate: regular rate Rhythm: regular rhythm Heart Sounds: no click, no gallops, no murmurs and no rubs Pulses: normal peripheral pulses GI Inspection: non-distended Palpation: soft, no hepatosplenomegaly, No guarding, No pulsatile mass and No tender Auscultation: normal bowel sounds Back/Spine/Pelvis Back: No CVA tenderness Cervical Spine: cervical ROM normal and No pain with cervical ROM Thoracic/Lumbar Spine: thoracic and lumbar spine normal to inspection Skin General: no rashes or lesions noted, No jaundice and No petechiae Neuro General: alert, oriented x3, gait normal and no focal motor deficits Speech: speech normal Extrem General: full ROM, no clubbing, cyanosis or edema, no pedal edema and no calf tenderness Psych Appearance: well kempt Mental Status: mental status grossly normal Attitude: cooperative Thought Content: normal and suicidality Judgment: judgment good Course Course Course Narrative: Patient was worked up for his symptoms of laboratory studies and EKG. He was placed on the radiation monitor, which showed occasional runs of 6-8 regular beats with narrow complexes. His laboratory studies were unremarkable. I discussed with the patient that at this point in time, I do not find evidence of a dangerous rhythm or evidence that his current heart rhythm could degenerate into a dangerous rhythm. I have discussed with the patient that the most important thing at this point is to do his Zio monitoring and to follow-up with cardiology. I have offered the patient a prescription for metoprolol for symptomatic relief only, with the caveats that his doctor may want him to D/C metoprolol for the Zio monitoring. The patient has stated that he would like to go on the metoprolol, and he has been given a dose here in the emergency department. We've discussed home management of the symptoms, as well as the usual indications for return. Orders Ordered: ED Orders 08/27/19 13:17 EKG-12 Lead Routine 08/27/19 13:26 EKG-12 Lead Routine 08/27/19 14:14 XR chest 1V Stat 08/27/19 14:29 Complete Blood Count AUTO DIFF Stat Comprehensive Metabolic Panel Stat Lipase Stat Partial Thromboplastin Time Stat Prothrombin Time INR Stat TSH [Thyroid Stimulating Hormone] Stat Troponin & CK Cardiac Panel Stat Discontinued Medications Metoprolol Succinate (Toprol Xl) 25 mg PO NOW ONE Stop: 08/27/19 14:55 Last Admin: 08/27/19 15:19 Dose: 25 mg Documented by: SONJAOTELucien Vital Signs Vital signs: Vital Signs - 8 hr 08/27/19 13:14 08/27/19 15:04 08/27/19 15:40 Temperature 97.3 F L Pulse Rate 104 H 67 72 Respiratory Rate 20 11 L Blood Pressure 115/96 H Blood Pressure [Right Arm] 111/76 Pulse Oximetry 96 96 08/27/19 15:41 Temperature Pulse Rate 72 Respiratory Rate Blood Pressure 115/96 H Blood Pressure [Right Arm] Pulse Oximetry MDM - Arrhythmia/Palpitations Medical Records Attestation: I reviewed the patient's medical records. Lab Data Attestation: I reviewed the patient's lab results. Result diagrams: 08/27/19 14:29 08/27/19 14:29 Labs: Lab Results 08/27/19 08/27/19 08/27/19 Range/Units 14:29 14:29 14:29 WBC 10.8 (4.5-11.0) X10^3/uL RBC 5.12 (4.5-5.9) X10^6/uL Hgb 16.0 (13.5-17.5) g/dL Hct 46.3 (41-53) % MCV 90.5 (80-100) fL MCH 31.1 (26-34) PG MCHC 34.4 (30-36) % RDW 13.2 (11.6-14.8) % Plt Count 267 (150-400) X10^3/uL Neut % (Auto) 70.8 (50-75) % Lymph % (Auto) 20.6 L (25-40) % Robeson % (Auto) 6.4 (3-14) % Eos % (Auto) 1.6 L (2-4) % Baso % (Auto) 0.6 (0-2) % Neut # (Auto) 7600 H (3650-1055) /uL Lymph # (Auto) 2200 (4062-9040) /uL Robeson # (Auto) 700 (0-900) /uL Eos # (Auto) 200 (0-450) /uL Baso # (Auto) 100 (0-100) /uL PT 11.8 (10.1-12.7) SECONDS INR 1.0 (0.9-1.3) APTT 35 (26.4-36.2) SECONDS Sodium 139 (137-145) mmol/L Potassium 4.1 (3.4-5.1) mmol/L Chloride 102 (98-107) mmol/L Carbon Dioxide 28 (22-32) mmol/L BUN 9 (9-20) mg/dL Creatinine 0.70 (0.66-1.25) mg/dL Estimated GFR > 60.0 (>60) mL/min BUN/Creatinine Ratio 12.9 (6-22) Glucose 99 (70-100) mg/dL Calcium 9.8 (8.4-10.2) mg/dL Total Bilirubin 0.6 (0.2-1.3) mg/dL AST 24 (17-59) IU/L ALT 21 (<50) IU/L Alkaline Phosphatase 101 (38-126) U/L Total Creatine Kinase 102 (55-170) U/L CK-MB (CK-2) 0.47 (<2.37) ng/mL CK-MB (CK-2) Rel Index 0.5 L (1.5-5.0) % Troponin I < 0.012 (0.01-0.034) ng/mL Total Protein 7.8 (6.3-8.2) g/dL Albumin 4.6 (3.5-5.0) g/dL Globulin 3.2 (1.7-4.1) g/dL Albumin/Globulin Ratio 1.4 (1.0-2.8) Lipase 61 (23-300) U/L TSH (0.47-4.68) uIU/mL 08/27/19 Range/Units 14:29 WBC (4.5-11.0) X10^3/uL RBC (4.5-5.9) X10^6/uL Hgb (13.5-17.5) g/dL Hct (41-53) % MCV (80-100) fL MCH (26-34) PG MCHC (30-36) % RDW (11.6-14.8) % Plt Count (150-400) X10^3/uL Neut % (Auto) (50-75) % Lymph % (Auto) (25-40) % Robeson % (Auto) (3-14) % Eos % (Auto) (2-4) % Baso % (Auto) (0-2) % Neut # (Auto) (0863-3263) /uL Lymph # (Auto) (6297-8770) /uL Robeson # (Auto) (0-900) /uL Eos # (Auto) (0-450) /uL Baso # (Auto) (0-100) /uL PT (10.1-12.7) SECONDS INR (0.9-1.3) APTT (26.4-36.2) SECONDS Sodium (137-145) mmol/L Potassium (3.4-5.1) mmol/L Chloride (98-107) mmol/L Carbon Dioxide (22-32) mmol/L BUN (9-20) mg/dL Creatinine (0.66-1.25) mg/dL Estimated GFR (>60) mL/min BUN/Creatinine Ratio (6-22) Glucose (70-100) mg/dL Calcium (8.4-10.2) mg/dL Total Bilirubin (0.2-1.3) mg/dL AST (17-59) IU/L ALT (<50) IU/L Alkaline Phosphatase (38-126) U/L Total Creatine Kinase (55-170) U/L CK-MB (CK-2) (<2.37) ng/mL CK-MB (CK-2) Rel Index (1.5-5.0) % Troponin I (0.01-0.034) ng/mL Total Protein (6.3-8.2) g/dL Albumin (3.5-5.0) g/dL Globulin (1.7-4.1) g/dL Albumin/Globulin Ratio (1.0-2.8) Lipase (23-300) U/L TSH 0.80 (0.47-4.68) uIU/mL ECG Data Attestation: I personally reviewed and interpreted this ECG as follows: (See below) Interpretation: Twelve lead EKG performed August 27, 2019 at 1:26 p.m., as follows: Regular ventricular rhythm with a rate of 107 beats per minute OR interval 201 milliseconds QRS duration 104 milliseconds QTC interval [address] T wave changes Interpretation: Sinus tachycardia with frequent supraventricular premature complexes; incomplete right bundle-branch block; no signs of acute ischemia; abnormal rhythm EKG as interpreted by ED MD. Discharge Plan Departure Patient Disposition: Home Clinical Impression: Palpitations Discharge Date/Time: 08/27/19 15:42 Instructions: DI for Arrhythmias Activity Restrictions/Additional Instructions: Your prescription has been electronically transmitted to [facility]. Prescriptions: New metoprolol succinate 25 mg capsule,sprinkle,ER 24hr 25 mg PO DAILY Qty: 7 RF: 0 No Action gabapentin 100 mg capsule 100 mg PO BEDTIME Qty: 30 RF: 0 citalopram 10 mg tablet 10 mg PO DAILY Qty: 30 RF: 2 baclofen 10 mg tablet 5 mg PO TID-QID PRN (Reason: Muscle Spasm) RF: 0 Referrals: Melissa Bedolla ARNP [Primary Care Provider] -
[2019-08-27 15:00] LABS: Troponin I < 0.012 ng/mL (0.01-0.034)
[2019-08-27 15:03] LABS: CKMB % Relative Index 0.5 % (1.5-5.0); Creatine Kinase MB 0.47 ng/mL (<2.37)
[2019-08-27 15:04] VITALS: BP 111/76; PULSE 67; RESP 11; O2SAT 96
[2019-08-27] MEDS: METOPROLOL ER 25 MG TABLET PO (15:19)
[2019-08-27 15:40] VITALS: BP 115/96; PULSE 72
[2019-08-27 15:41] VITALS: BP 115/96; PULSE 72
== END 2019-08-27 15:42 | disposition home or self-care (01) ==
PROVIDERS: Emergency Provider Emergency Medicine; PCP Nurse Practitioner
DX: R00.2 Palpitations (principal); R00.0 Tachycardia, unspecified; R07.9 Chest pain, unspecified
CPT/HCPCS: 36415; 71045; 80053; 82550; 82553; 83690; 84443; 84484; 85025; 85610; 85730; 93005; 99283; 99285

== ENCOUNTER → 2019-09-17 06:38 | Outpatient (CLI) | payer OTHER, MEDICAID, SELFPAY ==
--- NOTE | 2019-09-17 | DI.ECHO.S_ITS ---
[facility]---------+ [facility] +---------+ : : [address] : : : : [place] : : : : [id number] : : : : Phone: [phone]+ Echocardiogram Report + + :Name: LIZETT HARTLEY Study Date: 09/17/2019 Height: 71 in : :[facility] Weight: 236 lb : : Gender: Male BSA: 2.3 m2 : :: 1980 Age: 38 yrs BP: 122/78 mmHg: :Reason For Study: Abnormal ECG : : Performed By: LRF : :Referring: JOSE MANUEL BULLOCK : + + Interpretation Summary The left ventricular ejection fraction is normal. There are no obvious focal wall motion abnormalities noted but poor endocardial definition reduces the sensitivity for the detection of such. Diastolic parameters suggest probable normal left ventricular diastolic function and normal filling pressures. The right ventricle is not well visualized but is grossly normal size. The RV systolic function is normal. TAPSE 1.9 cm. Both atria are normal in size. No hemodynamically significant valvular abnormalities. No prior echocardiogram for comparison. Procedure: A two-dimensional transthoracic echocardiogram with color flow and Doppler was performed. The study quality was technically adequate. There is no prior echocardiogram noted for this patient. The patient was in normal sinus rhythm during the exam. Left Ventricle: The left ventricle is normal in size and wall thickness. The ejection fraction is estimated to be 55-60%. The left ventricular ejection fraction is normal. There are no obvious focal wall motion abnormalities noted but poor endocardial definition reduces the sensitivity for the detection of such. Diastolic parameters suggest probable normal left ventricular diastolic function and normal filling pressures. Right Ventricle: The right ventricle is not well visualized. The right ventricle is grossly normal size. Atria: Both atria are normal in size. There is no Doppler evidence for an interatrial shunt. Mitral Valve: The mitral valve is normal in structure and function. There is no mitral regurgitation noted. Aortic Valve: The aortic valve is not well visualized. No aortic regurgitation is present. Tricuspid Valve: The tricuspid valve is normal in structure and function. There is a trace or physiologic amount of tricuspid regurgitation. Pulmonary artery pressures cannot be estimated because of the lack of a measurable TR jet velocity. Pulmonic Valve: The pulmonic valve is not well seen, but is grossly normal. There is a trace or physiologic amount of pulmonic regurgitation. Great Vessels: The aortic root is mildly dilated. The ascending aorta is mild-moderately enlarged. The IVC is of normal diameter and collapses greater than 50% with a sniff. This suggests a low right atrial pressure of 3 mm Hg. Pericardium/ Pleura There is no pericardial effusion. There is an anterior echo-free space consistent with a fat pad. MMode/2D Measurements & Calculations LVIDd: 4.9 cm LVOT diam: 2.2 cm LVIDs: 3.4 cm Ao root diam: 4.0 cm FS: 31.6 % asc Aorta Diam: 3.8 cm EPSS: 0.93 cm Ao Arch Diam (Prox Trans): 3.6 cm IVSd: 0.83 cm LVPWd: 0.93 cm LV simeon. diameter/BSA (cm/m^2): 2.2 LV sys. diameter/BSA (cm/m^2): 1.5 LA A2 area: 18.2 cm2 RA long axis: 4.2 cm LA A4 area: 14.1 cm2 RA area: 14.2 cm2 LA length (vol): 4.5 cm RA vol: 40.5 ml LA vol: 48.8 ml RA : 17.9 ml/m2 LA vol index: 21.6 ml/m2 IVC diam: 0.83 cm TAPSE: 1.9 cm Doppler Measurements & Calculations Ao V2 max: 108.4 cm/sec LVOT Max Haroon: 86.4 cm/sec Ao V2 mean: 66.0 cm/sec LV V1 max P.0 mmHg Ao max P.7 mmHg LV V1 VTI: 18.0 cm Ao mean P.1 mmHg ELEONORA(I,D): 3.6 cm2 Ao V2 VTI: 19.4 cm ELEONORA(V,D): 3.1 cm2 sev ratio: 0.93 ELEONORA indexed to BSA (cm^2/m^2): 1.6 MV E max haroon: 63.4 cm/sec PA V2 max: 67.1 cm/sec MV A max haroon: 48.6 cm/sec PA V2 mean: 44.9 cm/sec MV E/A: 1.3 PA mean P.93 mmHg Med Peak E' Haroon: 9.2 cm/sec E/E' med: 6.9 Lat Peak E' Haroon: 13.4 cm/sec E/E' lat: 4.7 E/e' average: 5.8 MV dec time: 0.22 sec MV P1/2t: 63.4 msec MV P1/2t max haroon: 63.1 cm/sec SV(LVOT): 70.5 ml MVA(P1/2t): 3.5 cm2 Electronically signed by: Isrrael Mcgovern M.D. on Reading Physician:09/17/2019 10:05 AM
== END ==
PROVIDERS: PCP Nurse Practitioner; Referring Provider Nurse Practitioner; Visit Provider Nurse Practitioner
DX: R94.31 Abnormal electrocardiogram [ECG] [EKG] (principal); R00.2 Palpitations; R00.0 Tachycardia, unspecified; I49.9 Cardiac arrhythmia, unspecified; I45.10 Unspecified right bundle-branch block
CPT/HCPCS: 93306

== ENCOUNTER → 2019-09-22 07:07 | Outpatient (CLI) | payer OTHER, MEDICAID, SELFPAY ==
--- NOTE | 2019-09-22 08:17 | P.PCN_ITS ---
Cardiac Stress Test Report Referral & Results Date Patient Seen: 09/22/19 Time Patient Seen: 08:00 Requesting provider: Melissa Bedolla Indication: Abnormal EKG Rest ECG: Normal sinus rhythm Procedure Note: Today following both written and verbal informed consent, the patient was exercised according to a standard Bandar protocol. The patient exerc ised for a total of 8 minutes achieving a maximum heart rate of 180 for. Patient's maximum systolic blood pressure was 180. This was an estimated 10.1 METs. Test terminated early due to leg pain. Exaggerated hemodynamic response to exercise, but normalized rapidly with rest. No signs or symptoms of angina. No change in rhythm. ALVARO +30%, but limited by orthopedic problems. Target heart rate exceeded. No ST deviations noted. Impression: Low probability for ischemia. Suboptimal test in terms of endurance, but likely sufficient to assess for ischemia and rhythm disorder. Recommend graded exercise regimen. Please note: Actual ECG tracings can be found in the PACS system.
== END ==
PROVIDERS: PCP Nurse Practitioner; Referring Provider Nurse Practitioner; Visit Provider Nurse Practitioner
DX: R94.31 Abnormal electrocardiogram [ECG] [EKG] (principal); I49.9 Cardiac arrhythmia, unspecified; I45.10 Unspecified right bundle-branch block; R00.0 Tachycardia, unspecified; R00.2 Palpitations; M79.606 Pain in leg, unspecified
CPT/HCPCS: 93016; 93017; 93018

== ENCOUNTER 2020-02-05 13:07 | Emergency (ER) | payer OTHER, MEDICAID, SELFPAY ==
[2020-02-05 13:10] VITALS: BP 135/94; PULSE 89; RESP 15; TEMP 36.2; O2SAT 99; BMI 32.5
[2020-02-05 13:34] LABS: Add Manual Diff / Slide Review NO; Basophils Absolute Auto 100 /uL (0-100); Basophils Percent Auto 0.8 % (0-2); Eosinophils Absolute Auto 400 /uL (0-450); Eosinophils Percent Auto 3.6 % (2-4); Hemoglobin 16.3 g/dL (13.5-17.5); Lymphocytes Absolute Auto 3500 /uL (1100-4500); Lymphocytes Percent Auto 35.2 % (25-40); Mean Corpuscular HGB Conc 34.7 % (30-36); Mean Corpuscular Hemoglobin 33.3 PG (26-34); Mean Corpuscular Volume 96.1 fL (80-100); Monocytes Absolute Auto 700 /uL (0-900); Monocytes Percent Auto 7.5 % (3-14); Neutrophils Absolute Auto 5200 /uL (1500-7000); Neutrophils Percent Auto 52.9 % (50-75); Platelet Count 299 X10^3/uL (150-400); Red Blood Cell Count 4.89 X10^6/uL (4.5-5.9); Red Cell Distribution Width 12.6 % (11.6-14.8); White Blood Cell Count 9.8 X10^3/uL (4.5-11.0)
[2020-02-05 13:44] LABS: Prothrombin Time 11.5 SECONDS (10.1-12.7)
[2020-02-05 13:46] LABS: PTT Partial Thromboplastin Tim 37 SECONDS (26.4-36.2)
[2020-02-05 13:50] LABS: Alanine Aminotransferase 34 IU/L (<50); Albumin 4.8 g/dL (3.5-5.0); Albumin Globulin Ratio 1.5 (1.0-2.8); Alkaline Phosphatase 110 U/L (38-126); Aspartate Aminotransferase 38 IU/L (17-59); BUN Creatinine Ratio 16.9 (6-22); Bilirubin Total 0.6 mg/dL (0.2-1.3); Blood Urea Nitrogen 13 mg/dL (9-20); Calcium 9.6 mg/dL (8.4-10.2); Carbon Dioxide 27 mmol/L (22-32); Chloride 105 mmol/L (98-107); Estimated Glomerular Filt Rate > 60.0 mL/min (>60); Globulin 3.1 g/dL (1.7-4.1); Glucose 106 mg/dL (70-100); HEMOLYSIS < 15 (0-50); Potassium 4.8 mmol/L (3.4-5.1); Sodium 138 mmol/L (137-145); Total Protein 7.9 g/dL (6.3-8.2)
--- NOTE | 2020-02-05 14:26 | ED_ITS ---
HPI - GI Bleed <AMADOU Menard - Last Filed: 02/05/20 21:06> General Chief complaint: GI Bleed Stated complaint: STOMACH PROBLEMS Time Seen by Provider: 02/05/20 14:17 Source: patient Mode of arrival: Ambulatory Limitations: no limitations History of Present Illness HPI Narrative: 39yo male presents to the emergency department complaining of epigastric cramping for the past few weeks. Patient states the cramping and gnawing sensation feels like he is hungry but the pain is occasionally worse after he eats. Patient states he has increased his alcohol intake over the past few weeks as well due to quarantine. Patient reports drinking a 6 pack of beer a day. Last night patient took 800 mg of ibuprofen. This morning patient was feeling hung over from drinks last night and consume some coconut water. After that patient vomited food. Shortly after, patient vomited again and notice bright red blood in his vomit. Patient states after vomiting, his stomach pains improved. Patient denies any blood in his stool, black tarry stools, severe pain, dizziness, syncope, chest pain, shortness of breath, history of ulcers, or other concerns. He denies taking any and acids. Patient denies taking any blood thinners. Related Data Home Medications Medication Instructions Recorded Confirmed gabapentin 300 mg capsule 300 mg PO TID PRN cap 01/08/20 Previous Rx's Medication Instructions Recorded cyclobenzaprine 10 mg tablet 10 mg PO BID PRN #60 tab 09/23/19 citalopram 20 mg tablet 20 mg PO DAILY #90 tab 10/27/19 metoprolol succinate 25 mg 25 mg PO DAILY #90 tab 12/23/19 tablet,extended release 24 hr epinephrine 0.3 mg/0.3 mL 0.3 ml IM ONCE #1 each 01/11/20 injection, auto-injector Allergies Allergy/AdvReac Type Severity Reaction Status Date / Time No Known Drug Allergies Allergy Verified 02/05/20 13:10 Review of Systems <AMADOU Menard - Last Filed: 02/05/20 21:06> Review of Systems Narrative: REVIEW OF SYSTEMS: GENERAL: Denies fever, chills, malaise, or wt. loss. HENT: No head trauma, sore throat, or dysphagia. EYES: No loss of vision, double vision, eye pain, or irritation. CARDIOVASCULAR: No chest pain. RESPIRATORY: No shortness of breath or cough. GASTROINTESTINAL: Complains of vomiting blood, see HPI. GENITOURINARY: No urinary issues. MUSCULOSKELETAL: No pain, weakness, or trauma. INTEGUMENTARY: No rash, lesions, or pruritus. NEURO: No headaches or dizziness. PSYCH: No behavior or mood changes. Patient History <AMADOU Menard - Last Filed: 02/05/20 21:06> Medical History Anxiety (Chronic) Bee sting allergy (Acute) Bee sting-induced anaphylaxis (Acute) Chronic pain of thorax (Acute) Depression (Chronic) Facet arthropathy, lumbar (Acute) Hypertension (Acute) Medical history non-contributory (Acute) Palpitations with regular cardiac rhythm (Acute) Surgical History Anesthesia (Inactive) History of foot surgery (Resolved ~1992) Family History Father History of heart disease Mother ETOH abuse History of heart disease Brother Alcoholism Grandfather Cancer History of heart disease Grandmother History of heart disease Social History Smoking Status: Current every day smoker Smoking Status: Current every day smoker alcohol intake frequency: a few times a week Substance Use Type: does not use and marijuana Exam <AMADOU Menard - Last Filed: 02/05/20 21:06> Initial Vital Signs Initial Vital Signs: Vital Signs Temperature 97.2 F L 02/05/20 13:10 Pulse Rate 89 02/05/20 13:10 Respiratory Rate 15 02/05/20 13:10 Blood Pressure 135/94 H 02/05/20 13:10 Pulse Oximetry 99 02/05/20 13:10 PHYSICAL EXAMINATION: GENERAL: Well groomed, alert, and cooperative. Answers questions promptly and appropriately. Vital signs noted. HENT: Normocephalic, atraumatic. Hearing intact. Oral mucosa is pink and moist. EYES: Conjunctiva pink, sclera white, no periorbital swelling. CARDIOVASCULAR: S1 and S2 sounds normal. Regular rate and rhythm, no murmurs, clicks, or bruits. No pedal edema. RESPIRATORY: Normal respiratory rate, trachea midline, airway patent. No stridor, nasal flaring or accessory muscle use. Lungs are clear in all vazquez without wheeze, rhonchi, or crackles. GASTROINTESTINAL: Bowel sounds normoactive. Abdomen is soft and non-tender. No organomegaly, no palpable masses. GENITALURINARY: No flank tenderness. MUSCULOSKELETAL: Normal gait and coordination. Equal tone and mass bilaterally. EXTREMITIES: CMS intact, no pedal edema. SKIN: Warm, dry, soft, appropriate color for ethnicity. No lesions, rashes, or wounds to visualized areas. NEURO: Alert and Oriented X 3. Good coordination. No ataxia, or sensory deficits, or cognitive issues. PSYCH: Appropriate affect and mood. <Melissa Woods MD - Last Filed: 02/06/20 12:38> Initial Vital Signs Initial Vital Signs: Vital Signs Temperature 97.2 F L 02/05/20 13:10 Pulse Rate 89 02/05/20 13:10 Respiratory Rate 15 02/05/20 13:10 Blood Pressure 135/94 H 02/05/20 13:10 Pulse Oximetry 99 02/05/20 13:10 Course <AMADOU Menard - Last Filed: 02/05/20 21:06> Course Course Narrative: Patient was given Protonix, fluids, and a GI cocktail. Reports complete resolution of symptoms. No vomiting. Orders Ordered: Discontinued Medications Al Hydrox/Mg Hydrox/Simethicone 20 ml/ Lidocaine HCl 15 ml 0 ml PO NOW ONE Stop: 02/05/20 14:49 Last Admin: 02/05/20 15:28 Dose: 15 ml Documented by: TREY Sodium Chloride (Normal Saline 0.9%) 1,000 mls @ 150 mls/hr IV CONT ILENE Last Infusion: 02/05/20 16:35 Dose: 150 mls/hr Documented by: Admin: 02/05/20 15:28 Dose: 150 mls/hr Documented by: TREY Pantoprazole Sodium (Protonix) 80 mg IV NOW ONE Stop: 02/05/20 14:49 Last Admin: 02/05/20 15:30 Dose: 80 mg Documented by: TREY Consultations Consultation #1: Patient staffed with Dr. Woods discussed test, test results, and plan of care. Vital Signs Vital signs: Vital Signs - 8 hr 02/05/20 13:10 02/05/20 15:47 02/05/20 16:35 Temperature 97.2 F L Pulse Rate 89 78 68 Respiratory Rate 15 12 16 Blood Pressure 135/94 H 111/81 Blood Pressure [Left Arm] 124/92 H Pulse Oximetry 99 96 99 02/05/20 16:45 Temperature Pulse Rate Respiratory Rate Blood Pressure Blood Pressure [Left Arm] 111/81 Pulse Oximetry <Melissa Woods MD - Last Filed: 02/06/20 12:38> Orders Ordered: Discontinued Medications Al Hydrox/Mg Hydrox/Simethicone 20 ml/ Lidocaine HCl 15 ml 0 ml PO NOW ONE Stop: 02/05/20 14:49 Last Admin: 02/05/20 15:28 Dose: 15 ml Documented by: CVANCE Sodium Chloride (Normal Saline 0.9%) 1,000 mls @ 150 mls/hr IV CONT ILENE Last Infusion: 02/05/20 16:35 Dose: 150 mls/hr Documented by: Admin: 02/05/20 15:28 Dose: 150 mls/hr Documented by: CVANCE Pantoprazole Sodium (Protonix) 80 mg IV NOW ONE Stop: 02/05/20 14:49 Last Admin: 02/05/20 15:30 Dose: 80 mg Documented by: CVANCE Vital Signs Vital signs: Vital Signs - 8 hr 02/05/20 13:10 02/05/20 15:47 02/05/20 16:35 Temperature 97.2 F L Pulse Rate 89 78 68 Respiratory Rate 15 12 16 Blood Pressure 135/94 H 111/81 Blood Pressure [Left Arm] 124/92 H Pulse Oximetry 99 96 99 02/05/20 16:45 Temperature Pulse Rate Respiratory Rate Blood Pressure Blood Pressure [Left Arm] 111/81 Pulse Oximetry MDM - GI Bleed <AMADOU Menard - Last Filed: 02/05/20 21:06> Medical Records Attestation: I reviewed the patient's medical records. Lab Data Attestation: I reviewed the patient's lab results. Result diagrams: 02/05/20 13:22 02/05/20 13:22 Labs: Lab Results 02/05/20 02/05/20 02/05/20 Range/Units 13:22 13:22 13:22 WBC 9.8 (4.5-11.0) X10^3/uL RBC 4.89 (4.5-5.9) X10^6/uL Hgb 16.3 (13.5-17.5) g/dL Hct 47.0 (41-53) % MCV 96.1 (80-100) fL MCH 33.3 (26-34) PG MCHC 34.7 (30-36) % RDW 12.6 (11.6-14.8) % Plt Count 299 (150-400) X10^3/uL Neut % (Auto) 52.9 (50-75) % Lymph % (Auto) 35.2 (25-40) % [place] % (Auto) 7.5 (3-14) % Eos % (Auto) 3.6 (2-4) % Baso % (Auto) 0.8 (0-2) % Neut # (Auto) 5200 (9266-5339) /uL Lymph # (Auto) 3500 (9290-1292) /uL [place] # (Auto) 700 (0-900) /uL Eos # (Auto) 400 (0-450) /uL Baso # (Auto) 100 (0-100) /uL PT 11.5 (10.1-12.7) SECONDS INR 1.0 (0.9-1.3) APTT 37 H D (26.4-36.2) SECONDS Sodium 138 (137-145) mmol/L Potassium 4.8 (3.4-5.1) mmol/L Chloride 105 (98-107) mmol/L Carbon Dioxide 27 (22-32) mmol/L BUN 13 (9-20) mg/dL Creatinine 0.77 (0.66-1.25) mg/dL Estimated GFR > 60.0 (>60) mL/min BUN/Creatinine Ratio 16.9 (6-22) Glucose 106 H (70-100) mg/dL Calcium 9.6 (8.4-10.2) mg/dL Total Bilirubin 0.6 (0.2-1.3) mg/dL AST 38 (17-59) IU/L ALT 34 (<50) IU/L Alkaline Phosphatase 110 (38-126) U/L Total Protein 7.9 (6.3-8.2) g/dL Albumin 4.8 (3.5-5.0) g/dL Globulin 3.1 (1.7-4.1) g/dL Albumin/Globulin Ratio 1.5 (1.0-2.8) MDM Narrative Medical decision making narrative: 39-year-old male presenting to the emergency department for a single episode of vomiting blood after vomiting the contents of his stomach. Patient admits to taking ibuprofen and drinking excessive alcohol. Vomiting occurred a few hours prior to discharge in the, patient did not vomit since the initial incident. Differential includes gastric ulcer versus esophageal tear from initial retching. No concern for acute bleeding due to lack of abdominal pain, no further vomiting, no reports of blood in his stool or dark try stools, H&H within normal limits, and patient remains hemodynamically stable. Patient was given a PPI and encouraged to follow up with either his primary care provider or general surgery for possible discussion of endoscope. Strict return precautions given for new or worsening symptoms. Patient agreed to plan of care verbalized understanding. <Melissa Woods MD - Last Filed: 02/06/20 12:38> Lab Data Labs: Lab Results 02/05/20 02/05/20 02/05/20 Range/Units 13:22 13:22 13:22 WBC 9.8 (4.5-11.0) X10^3/uL RBC 4.89 (4.5-5.9) X10^6/uL Hgb 16.3 (13.5-17.5) g/dL Hct 47.0 (41-53) % MCV 96.1 (80-100) fL MCH 33.3 (26-34) PG MCHC 34.7 (30-36) % RDW 12.6 (11.6-14.8) % Plt Count 299 (150-400) X10^3/uL Neut % (Auto) 52.9 (50-75) % Lymph % (Auto) 35.2 (25-40) % [place] % (Auto) 7.5 (3-14) % Eos % (Auto) 3.6 (2-4) % Baso % (Auto) 0.8 (0-2) % Neut # (Auto) 5200 (5260-5020) /uL Lymph # (Auto) 3500 (8387-6755) /uL [place] # (Auto) 700 (0-900) /uL Eos # (Auto) 400 (0-450) /uL Baso # (Auto) 100 (0-100) /uL PT 11.5 (10.1-12.7) SECONDS INR 1.0 (0.9-1.3) APTT 37 H D (26.4-36.2) SECONDS Sodium 138 (137-145) mmol/L Potassium 4.8 (3.4-5.1) mmol/L Chloride 105 (98-107) mmol/L Carbon Dioxide 27 (22-32) mmol/L BUN 13 (9-20) mg/dL Creatinine 0.77 (0.66-1.25) mg/dL Estimated GFR > 60.0 (>60) mL/min BUN/Creatinine Ratio 16.9 (6-22) Glucose 106 H (70-100) mg/dL Calcium 9.6 (8.4-10.2) mg/dL Total Bilirubin 0.6 (0.2-1.3) mg/dL AST 38 (17-59) IU/L ALT 34 (<50) IU/L Alkaline Phosphatase 110 (38-126) U/L Total Protein 7.9 (6.3-8.2) g/dL Albumin 4.8 (3.5-5.0) g/dL Globulin 3.1 (1.7-4.1) g/dL Albumin/Globulin Ratio 1.5 (1.0-2.8) Discharge Plan Departure Patient Disposition: Home Clinical Impression: Dyspepsia Bloody vomitus Qualifiers: Nausea presence: with nausea Qualified Code(s): K92.0 - Hematemesis Discharge Date/Time: 02/05/20 16:35 Instructions: DI for Gastric Ulcer Activity Restrictions/Additional Instructions: Thank you for entrusting me with your care today. As discussed, I have given you a prescription for a medication that reduces the acid in your stomach. This medication is also [id number] if this is cheaper for you. Please take this in the morning before breakfast. Decreased consumption of chocolate, alcohol, ibuprofen, and spicy or acidic jaquelin ds. Please follow-up with your primary care provider or the surgeon listed below for discussion of possible endoscopy. Return emergency department for any new or worsening symptoms such as continued bloody vomitus, severe pain, high fevers, syncope, dizziness, or any other concerns. Prescriptions: No Action citalopram 20 mg tablet 20 mg PO DAILY Qty: 90 RF: 3 metoprolol succinate 25 mg tablet extended release 24 hr 25 mg PO DAILY Qty: 90 RF: 3 epinephrine [EpiPen 2-Luiz] 0.3 mg/0.3 mL auto-injector 0.3 ml IM ONCE Qty: 1 RF: 1 gabapentin 300 mg capsule 300 mg PO TID PRNRF: 0 cyclobenzaprine 10 mg tablet 10 mg PO BID PRN (Reason: muscle spasm) Qty: 60 RF: 1 Referrals: Melissa Bedolla ARNP [Primary Care Provider] - Andrew Soto MD [Physician] - <Mleissa Woods MD - Last Filed: 02/06/20 12:38> Cosign ED Attending Cosignature Attestation: I was immediately available in the department for consultation throughout this patient's visit. I agree with documentation as above. Melissa Woods MD
[2020-02-05] MEDS: MAG HYDROX/ALUMINUM/SIMETH SUS 20 ML, LIDOCAINE VISCOUS 2% 15 ML PO (15:28)
[2020-02-05] MEDS: SODIUM CHLORIDE 0.9% 1,000 ML 150 ML IV (15:28)
[2020-02-05] MEDS: PANTOPRAZOLE 40 MG VIAL 80 MG IV (15:30)
[2020-02-05 15:47] VITALS: BP 124/92; PULSE 78; RESP 12; O2SAT 96
[2020-02-05 16:35] VITALS: BP 111/81; PULSE 68; RESP 16; O2SAT 99
[2020-02-05 16:45] VITALS: BP 111/81
== END 2020-02-05 16:35 | disposition home or self-care (01) ==
PROVIDERS: Emergency Medicine; Emergency Provider Nurse Practitioner; PCP Nurse Practitioner
DX: K92.0 Hematemesis (principal); R10.13 Epigastric pain
CPT/HCPCS: 36415; 80053; 85025; 85610; 85730; 93005; 96361; 96374; 99284; C9113

== ENCOUNTER → 2020-10-10 12:52 | Outpatient (CLI) | payer OTHER, MEDICAID, SELFPAY ==
[2020-10-10 14:57] LABS: Free T3, Triiodothyronine Free 3.71 pg/mL (2.77-5.27); Free T4, Direct Thyroxine 0.88 ng/dL (0.78-2.19)
[2020-10-10 15:19] LABS: BUN Creatinine Ratio 14.7 (6-22); Blood Urea Nitrogen 11 mg/dL (9-20); Calcium 9.4 mg/dL (8.4-10.2); Carbon Dioxide 27 mmol/L (22-32); Chloride 104 mmol/L (98-107); Estimated Glomerular Filt Rate > 60.0 mL/min (>60); Glucose 99 mg/dL (70-100); HEMOLYSIS < 15 (0-50); Potassium 4.3 mmol/L (3.4-5.1); Sodium 135 mmol/L (137-145)
== END ==
PROVIDERS: PCP Nurse Practitioner; Referring Provider Nurse Practitioner; Visit Provider Nurse Practitioner
DX: F32.9 Major depressive disorder, single episode, unspecified (principal); F41.9 Anxiety disorder, unspecified; Z01.812 Encounter for preprocedural laboratory examination
CPT/HCPCS: 36415; 80048; 84439; 84443; 84481

== ENCOUNTER 2021-02-20 15:02 | Emergency (ER) | payer OTHER, MEDICAID, SELFPAY ==
[2021-02-20 15:03] VITALS: BP 125/96; PULSE 114; RESP 20; TEMP 36.3; O2SAT 98
[2021-02-20] MEDS: SODIUM CHLORIDE 0.9% 1,000 ML 1000 ML IV (15:54)
[2021-02-20 15:59] LABS: Add Manual Diff / Slide Review NO; Basophils Absolute Auto 100 /uL (0-100); Basophils Percent Auto 0.7 % (0-2); Eosinophils Absolute Auto 100 /uL (0-450); Eosinophils Percent Auto 1.2 % (2-4); Hematocrit 48.6 % (41-53); Hemoglobin 16.7 g/dL (13.5-17.5); Lymphocytes Absolute Auto 2800 /uL (1100-4500); Lymphocytes Percent Auto 28.2 % (25-40); Mean Corpuscular HGB Conc 34.5 % (30-36); Mean Corpuscular Hemoglobin 31.8 PG (26-34); Mean Corpuscular Volume 92.2 fL (80-100); Monocytes Absolute Auto 900 /uL (0-900); Monocytes Percent Auto 8.7 % (3-14); Neutrophils Absolute Auto 6100 /uL (1500-7000); Neutrophils Percent Auto 61.2 % (50-75); Platelet Count 278 X10^3/uL (150-400); Red Blood Cell Count 5.27 X10^6/uL (4.5-5.9); Red Cell Distribution Width 13.8 % (11.6-14.8)
[2021-02-20 16:03] LABS: Bacteria Urine None Seen
[2021-02-20 16:05] LABS: Alanine Aminotransferase 37 IU/L (<50); Albumin 4.6 g/dL (3.5-5.0); Albumin Globulin Ratio 1.4 (1.0-2.8); Alkaline Phosphatase 94 U/L (38-126); Aspartate Aminotransferase 54 IU/L (17-59); BUN Creatinine Ratio 19.1 (6-22); Bilirubin Total 1.5 mg/dL (0.2-1.3); Blood Urea Nitrogen 17 mg/dL (9-20); Calcium 9.9 mg/dL (8.4-10.2); Carbon Dioxide 26 mmol/L (22-32); Chloride 101 mmol/L (98-107); Estimated Glomerular Filt Rate > 60.0 mL/min (>60); Globulin 3.2 g/dL (1.7-4.1); Glucose 94 mg/dL (70-100); HEMOLYSIS < 15 (0-50); Lipase 66 U/L (23-300); Potassium 3.9 mmol/L (3.4-5.1); Sodium 136 mmol/L (137-145); Total Protein 7.8 g/dL (6.3-8.2)
[2021-02-20 16:21] LABS: Culture Indicated Urine Cult Not Indicated; Mucus Urine 1+ (Negative); RBC Urine 0-1/HPF (0-5/HPF); WBC Urine 0-1/HPF (0-5/HPF)
[2021-02-20 18:25] VITALS: BP 135/90; PULSE 88; RESP 18; O2SAT 99
--- NOTE | 2021-02-20 19:06 | ED_ITS ---
HPI - Male Genitourinary General Chief complaint: Abdominal Pain Stated complaint: Kidney Pain, Weakness, Trouble Urinating Time Seen by Provider: 02/20/21 17:44 Source: patient Mode of arrival: Ambulatory History of Present Illness HPI Narrative: 40-year-old male with noncontributory medical history presents with his significant other and a chief complaint of 2-3 days of difficulty with urination and dark urination. He denies any fever or chills. He denies nausea or vomiting but does have a poor appetite for the past few days. He is not dizzy nor weak or lightheaded. He denies any provocation, palliation or radiation of his discomfort. He is not currently having any discomfort. He states that his doctor his stated in the past whether not it would be worth evaluating for kidney stones but no imaging has been performed. Related Data Previous Rx's Medication Instructions Recorded citalopram 40 mg tablet 40 mg PO DAILY #90 tab 10/10/20 epinephrine 0.3 mg/0.3 mL 0.3 ml IM ONCE #1 each 10/10/20 injection, auto-injector (EpiPen 2-Luiz) hydroxyzine HCl 50 mg tablet 50 mg PO TID PRN #90 tab 10/10/20 metoprolol succinate 25 mg 25 mg PO DAILY #90 tab 02/01/21 tablet,extended release 24 hr cyclobenzaprine 5 mg tablet See Rx Instructions PO TID PRN #20 02/02/21 tab Allergies Allergy/AdvReac Type Severity Reaction Status Date / Time No Known Drug Allergies Allergy Verified 02/02/21 13:27 Review of Systems Review of Systems Narrative: GENERAL: Denies chills, fatigue, malaise, fever, sweats. HEENT: Denies sinus pain, ear pain, sore throat, difficulty swallowing, dizziness. RESPIRATORY: Denies dyspnea, cough, wheezing, hemoptysis, sputum. CARDIOVASCULAR: Denies chest pain, palpitations, orthopnea, edema, GASTROINTESTINAL: Denies nausea, vomiting, abdominal pain, diarrhea, constipation, melena. : See HPI MUSCULOSKELETAL: denies weakness, joint pain, or bony pain SKIN: Denies rash, skin lesions, or other NEUROLOGIC: Denies weakness, headache, numbness, change in speech, confusion, seizures, incoordination. PSYCHIATRIC: No concerning psychosocial issues. 12 point review of systems is negative except for those stated above Patient History Medical History Anaphylactic reaction Anxiety Back pain Bee sting allergy Bee sting-induced anaphylaxis Chronic pain of thorax Degenerative disc disease Depression Facet arthropathy, lumbar Hypertension L4-L5 disc bulge Lower back pain Medical history non-contributory Palpitations with regular cardiac rhythm Spinal stenosis at L4-L5 level Tobacco abuse counseling Surgical History Anesthesia History of foot surgery (~1992) Family History Father History of heart disease Mother ETOH abuse History of heart disease Brother Alcoholism Grandfather Cancer History of heart disease Grandmother History of heart disease Social History Smoking Status: Current every day smoker Smoking Status: Current every day smoker alcohol intake frequency: a few times a week Substance Use Type: does not use and marijuana Exam Narrative Exam Narrative: GENERAL: [40] year old patient appears stated age. Well- developed patient, in mild distress. HEAD: Atraumatic. Normocephalic. EYES: Pupils equal round and reactive. Extraocular motions intact. No scleral icterus. No injection or drainage. ENT: Nose without bleeding, purulent drainage. Throat without erythema, tonsillar hypertrophy or exudate. Airway patent. NECK: Trachea midline. Non tender CARDIOVASCULAR: Regular rate and rhythm without murmurs, gallops, or rubs. RESPIRATORY: Clear to auscultation. Breath sounds equal bilaterally. No wheezes, rales, or rhonchi. GASTROINTESTINAL: Abdomen soft, non-tender, nondistended. EXTREMITIES: No edema or joint tenderness. BACK: Patient has decreased range of motion in his back due to pain. He has soft tissue tenderness to palpation. There is no bony point tenderness. Patient has no signs of cauda equina such as saddle anesthesia, decreased reflexes, or foot drop. Patient has negative straight leg raising. NEURO: AOx3. SKIN: No rash or erythema of visible areas Initial Vital Signs Initial Vital Signs: Vital Signs Temperature 97.4 F L 02/20/21 15:03 Pulse Rate 114 H 02/20/21 15:03 Respiratory Rate 20 02/20/21 15:03 Blood Pressure 125/96 H 07/12/21 15:03 Pulse Oximetry 98 02/20/21 15:03 Course Orders Ordered: Discontinued Medications Sodium Chloride (Normal Saline 0.9%) 1,000 mls @ 1,000 mls/hr IV BOLUS ONE Stop: 02/20/21 16:12 Last Infusion: 02/20/21 18:00 Dose: 0 mls/hr Documented by: Admin: 02/20/21 15:54 Dose: 1,000 mls/hr Documented by: GERBER Reevaluation(s) Reevaluation #1: patient feeling really well, able to produce urine after 2L saline Vital Signs Vital signs: Vital Signs - 8 hr 02/20/21 18:25 02/20/21 20:15 Pulse Rate 88 91 H Respiratory Rate 18 20 Blood Pressure 135/90 137/100 H Pulse Oximetry 99 96 MDM - Male Genitourinary Lab Data Result diagrams: 02/20/21 15:40 02/20/21 15:40 Labs: Lab Results 02/20/21 02/20/21 02/20/21 Range/Units 15:40 15:40 15:48 WBC 10.0 (4.5-11.0) X10^3/uL RBC 5.27 (4.5-5.9) X10^6/uL Hgb 16.7 (13.5-17.5) g/dL Hct 48.6 (41-53) % MCV 92.2 (80-100) fL MCH 31.8 (26-34) PG MCHC 34.5 (30-36) % RDW 13.8 (11.6-14.8) % Plt Count 278 (150-400) X10^3/uL Neut % (Auto) 61.2 (50-75) % Lymph % (Auto) 28.2 (25-40) % [place] % (Auto) 8.7 (3-14) % Eos % (Auto) 1.2 L (2-4) % Baso % (Auto) 0.7 (0-2) % Neut # (Auto) 6100 (6265-0094) /uL Lymph # (Auto) 2800 (2636-9574) /uL [place] # (Auto) 900 (0-900) /uL Eos # (Auto) 100 (0-450) /uL Baso # (Auto) 100 (0-100) /uL Sodium 136 L (137-145) mmol/L Potassium 3.9 (3.4-5.1) mmol/L Chloride 101 (98-107) mmol/L Carbon Dioxide 26 (22-32) mmol/L BUN 17 (9-20) mg/dL Creatinine 0.89 (0.66-1.25) mg/dL Estimated GFR > 60.0 (>60) mL/min BUN/Creatinine Ratio 19.1 (6-22) Glucose 94 (70-100) mg/dL Calcium 9.9 (8.4-10.2) mg/dL Total Bilirubin 1.5 H (0.2-1.3) mg/dL AST 54 (17-59) IU/L ALT 37 (<50) IU/L Alkaline Phosphatase 94 (38-126) U/L Total Protein 7.8 (6.3-8.2) g/dL Albumin 4.6 (3.5-5.0) g/dL Globulin 3.2 (1.7-4.1) g/dL Albumin/Globulin Ratio 1.4 (1.0-2.8) Lipase 66 (23-300) U/L Urine RBC 0-1/hpf (0-5/HPF) Urine WBC 0-1/hpf (0-5/HPF) Urine Bacteria None seen (None) Urine Mucus 1+ H (Negative) Ur Culture Indicated? Cult not indicated Urine Dip Bedside Urine Glucose Negative Bedside Urine Bilirubin - Negative Bedside Urine Ketone +++ 80 Urine Specific [place] 1.025 Bedside Urine Occult Blood - Negative Bedside Urine pH 6.0 Bedside Urine Protein - Negative Bedside Urine Urobilinogen +/- 1mg Bedside Urine Nitrite - Negative Bedside Urine Leukocytes - Negative Esterase Discharge Plan Departure Patient Disposition: Home Clinical Impression: Acute dehydration, Acute flank pain Instructions: DI for Dehydration -- Adult Activity Restrictions/Additional Instructions: *You have been diagnosed with [dehydration and flank pain. ] *What to do: *Please continue to take your regular medications as directed. [ ] New medication prescriptions sent to your pharmacy: [ ] [ ] New medication written as a paper prescription [ x] No new medications given *Please follow up with your primary care provider in 2-3 days, call for an appointment. Let them know you were seen in the Emergency Department and that we ask that you be seen in follow up. We will electronically transmit a record of today's note if your PCP is in our system *If you do not have a primary care provider please contact the [facility] Resource line at [phone]. They will ask some questions about your medical history and help get you set up with a doctor in the community. *Return to Emergency Department if you should have any new, worsening or concerning symptoms, such as [fever greater than 101 F, shaking chills, worsening pain, persistent vomiting or other bothersome symptoms] Prescriptions: No Action cyclobenzaprine 5 mg tablet See Rx Instructions PO TID PRN (Reason: muscle spasm) Qty: 20 RF: 0 metoprolol succinate 25 mg tablet extended release 24 hr 25 mg PO DAILY Qty: 90 RF: 2 epinephrine [EpiPen 2-Luiz] 0.3 mg/0.3 mL auto-injector 0.3 ml IM ONCE Qty: 1 RF: 1 citalopram 40 mg tablet 40 mg PO DAILY Qty: 90 RF: 3 hydroxyzine HCl 50 mg tablet 50 mg PO TID PRN (Reason: anxiety) Qty: 90 RF: 3 Referrals: Melissa Bedolla ARNP [Primary Care Provider] -
[2021-02-20 20:15] VITALS: BP 137/100; PULSE 91; RESP 20; O2SAT 96
== END 2021-02-20 20:17 | disposition home or self-care (01) ==
PROVIDERS: Emergency Medicine; Emergency Provider Emergency Medicine; PCP Nurse Practitioner
DX: E86.0 Dehydration (principal); R10.9 Unspecified abdominal pain
CPT/HCPCS: 36415; 80053; 81003; 81015; 83690; 85025; 93005; 93010; 96360; 96361; 99284

== ENCOUNTER → 2021-06-15 11:23 | Outpatient (CLI) | payer OTHER, MEDICAID, SELFPAY ==
[2021-06-15 12:02] LABS: COVID19 -Nasal RAPID Negative (Negative)
== END ==
PROVIDERS: PCP Nurse Practitioner; Visit Provider Physician Assistant
DX: Z20.822 Contact with and (suspected) exposure to COVID-19 (principal)
CPT/HCPCS: 87635

== ENCOUNTER → 2022-06-07 11:47 | Outpatient (CLI) | payer OTHER, MEDICAID, SELFPAY | PROVIDERS: PCP Nurse Practitioner; Visit Provider Nurse Practitioner Family | DX: J02.9 Acute pharyngitis, unspecified (principal) | CPT/HCPCS: 87070; 87880 ==

== ENCOUNTER 2022-06-29 18:42 | Emergency (ER) | payer OTHER, MEDICAID, SELFPAY ==
[2022-06-29 19:03] VITALS: BP 156/103; PULSE 107; RESP 18; TEMP 36.6; O2SAT 99
[2022-06-29 22:18] VITALS: BP 134/90; PULSE 90; RESP 16; O2SAT 100
== END 2022-06-30 00:19 | disposition left against medical advice (07) ==
PROVIDERS: Emergency Provider Emergency Medicine; PCP Nurse Practitioner
CPT/HCPCS: 99282

== ENCOUNTER 2024-10-01 23:46 | Emergency (ER) | payer SELFPAY ==
[2024-10-01 23:55] VITALS: BP 133/99; PULSE 104; RESP 16; TEMP 36.3; O2SAT 97; BMI 29.7
--- NOTE | 2024-10-02 00:25 | PC.NURSE ---
Pt to RN desk stating I'm just going to go. There is no reason for me to be here. RN requests pt to stay until geotechnician can be consulted. Pt agrees and goes back into exam room then immediately comes back out and states I'm not arrested or anything am I? I think I'm just going to go. Pt leaves the department at this time ambulatory without difficulty or assistance with steady gait.
--- NOTE | 2024-10-02 00:56 | PC.NURSE ---
Addendum entered by Yoko Dudley R.N. 10/02/24 02:21: Sitter assigned to elopement Original Note: Was on phone with discussing pt's history, reports pt just texted her he wants a divorce, when got the word that patient ambulated out of the department, met patient in waiting room and was able to convince pt into triage room again, had drink box mechanic sit with patient, called apd to discuss the why pt was dropped off and about pt's current behavior. [employer] states would come back and fill out NANI paperwork. pt eloped from triage room. [employer] called and informed. [employer] brought patient back to room 13. Pt refusing blood work at this time.
[2024-10-02 01:38] LABS: Add Manual Diff / Slide Review NO; Basophils Absolute Auto 0 /uL (0-100); Basophils Percent Auto 0.4 % (0-2); Eosinophils Absolute Auto 300 /uL (0-450); Eosinophils Percent Auto 2.7 % (2-4); Hematocrit 48.7 % (41-53); Hemoglobin 16.3 g/dL (13.5-17.5); Lymphocytes Absolute Auto 5300 /uL (1100-4500); Mean Corpuscular HGB Conc 33.4 % (30-36); Mean Corpuscular Hemoglobin 30.3 PG (26-34); Mean Corpuscular Volume 90.8 fL (80-100); Monocytes Absolute Auto 500 /uL (0-900); Monocytes Percent Auto 4.6 % (3-14); Neutrophils Absolute Auto 3900 /uL (1500-7000); Neutrophils Percent Auto 39.3 % (50-75); Platelet Count 337 X10^3/uL (150-400); Red Blood Cell Count 5.37 X10^6/uL (4.5-5.9); Red Cell Distribution Width 13.6 % (11.6-14.8)
[2024-10-02 01:39] LABS: Ur Creatinine Normal (Normal); Ur Specific Gravity Normal (Normal); Urine pH Normal (Normal)
[2024-10-02 01:40] LABS: Urine Cocaine Negative (Negative); Urine THC Positive (Negative)
[2024-10-02 01:41] LABS: Urine Amphetamines Positive (Negative); Urine Barbiturates Negative (Negative); Urine Benzodiazepines Negative (Negative); Urine MDMA Negative (Negative); Urine Methadone Negative (Negative); Urine Methamphetamines Positive (Negative); Urine Opiates Negative (Negative); Urine Oxycodone Negative (Negative); Urine Phencyclidine Negative (Negative); Urine Tricyclic Antidepressant Negative (Negative)
[2024-10-02 01:43] LABS: Alanine Aminotransferase 46 IU/L (<50); Albumin 4.8 g/dL (3.5-5.0); Albumin Globulin Ratio 1.5 (1.0-2.8); Alkaline Phosphatase 93 U/L (38-126); Aspartate Aminotransferase 55 IU/L (17-59); Bilirubin Total 0.5 mg/dL (0.2-1.3); Blood Urea Nitrogen 8 mg/dL (9-20); Carbon Dioxide 25 mmol/L (22-32); Chloride 106 mmol/L (98-107); Estimated Glomerular Filt Rate > 60 mL/min (>60); Ethanol (ETOH) 254 mg/dL; Globulin 3.3 g/dL (1.7-4.1); Glucose 82 mg/dL (70-100); HEMOLYSIS < 15 (0-50); Potassium 4.4 mmol/L (3.4-5.1); Sodium 143 mmol/L (137-145); Total Protein 8.1 g/dL (6.3-8.2)
--- NOTE | 2024-10-02 02:01 | PC.NURSE ---
APD sat in room 13 with patient allowing patient to talk. Pt became agreeable again, apologized multiple times for behavior. Agreed to blood draw and urine sample. Offered pt water and he accepted. Discussed pt being agreable to stay and talk to social work associate in the morning. Pt agreed to stay. Pt laying on bed at this time.
--- NOTE | 2024-10-02 02:12 | ED_ITS ---
HPI - Psych <Andrew Khan MD - Last Filed: 10/02/24 16:19> General Chief Complaint: Psychiatric Symptoms Stated Complaint: needs to talk to someone Time Seen by Provider: 10/02/24 00:51 Source: patient Mode of arrival: Ambulatory History of Present Illness HPI Narrative: 43-year-old male with recent alcohol use brought in by police for reported suicidal ideation, patient believes and/or friend might have called 911, he denies thoughts of hurting himself, he was initially brought to the department and was reluctant to stay, left the department, and was brought back by police for further evaluation. Chart history of substance abuse, tobacco, alcohol, opiate use disorder, depression, anxiety. Currently patient denies any thoughts of hurting himself or others. Patient seems resigned to stay for further evaluation, brought [facility] for further evaluation for alleged suicidal ideation. Related Data Previous Rx's Medication Instructions Recorded epinephrine 0.3 mg/0.3 mL 0.3 ml IM ONCE #1 ea 10/10/20 injection, auto-injector (EpiPen 2-Luiz) citalopram 40 mg tablet 20 mg (1/2 x 40 mg) PO DAILY #90 03/14/22 tabs metoprolol succinate 25 mg 25 mg PO DAILY #90 tabs 03/14/22 tablet,extended release 24 hr Allergies Allergy/AdvReac Type Severity Reaction Status Date / Time No Known Drug Allergies Allergy Verified 06/29/22 19:06 Patient History <Andrew Khan MD - Last Filed: 10/02/24 16:19> Medical History (Updated 10/02/24 @ 02:53 by Andrew Khan MD) Opioid use disorder, moderate, in early remission Insomnia COVID-19 Acute sinusitis Cervical strain Bee sting-induced anaphylaxis Hypertension Palpitations with regular cardiac rhythm Facet arthropathy, lumbar Tobacco abuse counseling Spinal stenosis at L4-L5 level Lower back pain L4-L5 disc bulge Depression Anxiety Bee sting allergy Anaphylactic reaction Degenerative disc disease Chronic pain of thorax Back pain Medical history non-contributory Surgical History Anesthesia History of foot surgery (~1992) Family History Father History of heart disease Mother ETOH abuse History of heart disease Brother Alcoholism Grandfather Cancer History of heart disease Grandmother History of heart disease Social History Smoking Status: Current every day smoker Smoking Status: Current every day smoker alcohol intake frequency: a few times a week Exam <Andrew Khan MD - Last Filed: 10/02/24 16:19> Narrative Exam Narrative: GENERAL: Well-developed patient, in mild distress. Alcohol on breath, cooperative HEAD: Atraumatic. Normocephalic. EYES: Pupils equal round and reactive. Extraocular motions intact. No scleral icterus. No injection or drainage. ENT: Nose without bleeding, purulent drainage. Throat without erythema, tonsillar hypertrophy or exudate. Airway patent. CARDIOVASCULAR: Regular rate and rhythm without murmurs, gallops, or rubs. RESPIRATORY: Clear to auscultation. Breath sounds equal bilaterally. No wheezes, rales, or rhonchi. GASTROINTESTINAL: Abdomen soft, non-tender EXTREMITIES: No edema or joint tenderness. No obvious lacerations BACK: Nontender without deformity or crepitance. No flank tenderness. NEURO: Alert, cooperative, clear speech. Motor functions grossly nonfocal SKIN: No rash or erythema of visible areas Initial Vital Signs Initial Vital Signs: Vital Signs Temperature 97.3 F L 10/01/24 23:55 Pulse Rate 104 H 10/01/24 23:55 Respiratory Rate 16 10/01/24 23:55 Blood Pressure 133/99 H 10/01/24 23:55 Pulse Oximetry 97 10/01/24 23:55 Oxygen Delivery Method Room Air 10/01/24 23:55 <Dickson Olivo MD - Last Filed: 10/02/24 11:37> Initial Vital Signs Initial Vital Signs: Vital Signs Temperature 97.3 F L 10/01/24 23:55 Pulse Rate 104 H 10/01/24 23:55 Respiratory Rate 16 10/01/24 23:55 Blood Pressure 133/99 H 10/01/24 23:55 Pulse Oximetry 97 10/01/24 23:55 Oxygen Delivery Method Room Air 10/01/24 23:55 Course <Andrew Khan MD - Last Filed: 10/02/24 16:19> Orders Ordered: ED Orders 10/02/24 06:56 Consult to [facility] - Electromechanical Equipment [employer] Stat Vital Signs Vital signs: Vital Signs - 8 hr 10/02/24 09:00 10/02/24 11:50 Temperature 97.3 F L Pulse Rate 118 H Respiratory Rate 16 20 Blood Pressure 125/91 H Pulse Oximetry 97 Oxygen Delivery Method Room Air <Dickson Olivo MD - Last Filed: 10/02/24 11:37> Orders Ordered: ED Orders 10/02/24 06:56 Consult to [facility] Stat Vital Signs Vital signs: Vital Signs - 8 hr 10/02/24 09:00 10/02/24 11:50 Temperature 97.3 F L Pulse Rate 118 H Respiratory Rate 16 20 Blood Pressure 125/91 H Pulse Oximetry 97 Oxygen Delivery Method Room Air MDM - Psych <Andrew Khan MD - Last Filed: 10/02/24 16:19> Lab Data Attestation: I reviewed the patient's lab results. Lab results narrative: White blood cell count 51209, hemoglobin 16.3, platelets adequate. Basic metabolic panel unremarkable, glucose 82 noted. Normal renal function. Liver functions unremarkable. Urine drug screen positive for amphetamines, methamphetamines, marijuana. Blood alcohol level 254 at 1:20 a.m. noted. 10/02/24 01:20 10/02/24 01:20 Labs: Lab Results 10/02/24 10/02/24 Range/Units 01:20 01:24 WBC 10.0 (4.5-11.0) X10^3/uL RBC 5.37 (4.5-5.9) X10^6/uL Hgb 16.3 (13.5-17.5) g/dL Hct 48.7 (41-53) % MCV 90.8 (80-100) fL MCH 30.3 (26-34) PG MCHC 33.4 (30-36) % RDW 13.6 (11.6-14.8) % Plt Count 337 (150-400) X10^3/uL Neut % (Auto) 39.3 L (50-75) % Lymph % (Auto) 53.0 H (25-40) % [place] % (Auto) 4.6 (3-14) % Eos % (Auto) 2.7 (2-4) % Baso % (Auto) 0.4 (0-2) % Neut # (Auto) 3900 (6648-6608) /uL Lymph # (Auto) 5300 H (9580-7005) /uL [place] # (Auto) 500 (0-900) /uL Eos # (Auto) 300 (0-450) /uL Baso # (Auto) 0 (0-100) /uL Sodium 143 (137-145) mmol/L Potassium 4.4 (3.4-5.1) mmol/L Chloride 106 (98-107) mmol/L Carbon Dioxide 25 (22-32) mmol/L BUN 8 L (9-20) mg/dL Creatinine 0.89 (0.66-1.25) mg/dL Estimated GFR > 60 (>60) mL/min BUN/Creatinine Ratio 9.0 (6-22) Glucose 82 (70-100) mg/dL Calcium 9.0 (8.4-10.2) mg/dL Total Bilirubin 0.5 (0.2-1.3) mg/dL AST 55 (17-59) IU/L ALT 46 (<50) IU/L Alkaline Phosphatase 93 (38-126) U/L Total Protein 8.1 (6.3-8.2) g/dL Albumin 4.8 (3.5-5.0) g/dL Globulin 3.3 (1.7-4.1) g/dL Albumin/Globulin Ratio 1.5 (1.0-2.8) TSH 1.11 (0.47-4.68) uIU/mL U Opiates 300ng/mL cut Negative (Negative) Ur Oxycodone Screen Negative (Negative) Urine Methadone Screen Negative (Negative) Ur Barbiturates Screen Negative (Negative) U Tricyclic Antidepress Negative (Negative) Ur Phencyclidine Scrn Negative (Negative) Ur Amphetamines Screen Positive H (Negative) U Methamphetamines Scrn Positive H (Negative) Ur MDMA Scrn (Ecstasy) Negative (Negative) U Benzodiazepines Scrn Negative (Negative) Urine Cocaine Screen Negative (Negative) U Marijuana (THC) Screen Positive H (Negative) Urine pH Normal (Normal) Urine Specific [place] Normal (Normal) Ethyl Alcohol 254 H ( - 10) mg/dL Ur Creatinine Normal (Normal) Urine Dip Bedside Urine Glucose Negative Bedside Urine Bilirubin - Negative Bedside Urine Ketone - Negative Urine Specific [place] 1.020 Bedside Urine Occult Blood - Negative Bedside Urine pH 6.0 Bedside Urine Protein - Negative Bedside Urine Urobilinogen - Negative Bedside Urine Nitrite - Negative Bedside Urine Leukocytes - Negative Esterase MDM Narrative Medical decision making narrative: 43-year-old male with recent alcohol use had reported suicidal ideation, brought here by PD for evaluation, seems cooperative, denies SI/HI to me, but seems willing to stay for evaluation with Electromechanical Equipment As[employer] in the morning. Screening labs showed elevated alcohol level 254 at 1:20 a.m. Other screening labs unremarkable. 0700, socially responsible investment adviser consult later this morning if patient willing, signed out to Dr Olivo -on reassessment by myself as well as the social work team patient is now clinically sober, he states he has no HI, no SI no hallucinations, at this time his will give him a ride he has a safe disposition and not believe he needs further observation in the ED or psychiatric consultation. Social work cleared for discharge patient discharged from the ED <Dickson Olivo MD - Last Filed: 10/02/24 11:37> Lab Data Labs: Lab Results 10/02/24 10/02/24 Range/Units 01:20 01:24 WBC 10.0 (4.5-11.0) X10^3/uL RBC 5.37 (4.5-5.9) X10^6/uL Hgb 16.3 (13.5-17.5) g/dL Hct 48.7 (41-53) % MCV 90.8 (80-100) fL MCH 30.3 (26-34) PG MCHC 33.4 (30-36) % RDW 13.6 (11.6-14.8) % Plt Count 337 (150-400) X10^3/uL Neut % (Auto) 39.3 L (50-75) % Lymph % (Auto) 53.0 H (25-40) % [place] % (Auto) 4.6 (3-14) % Eos % (Auto) 2.7 (2-4) % Baso % (Auto) 0.4 (0-2) % Neut # (Auto) 3900 (2742-9030) /uL Lymph # (Auto) 5300 H (4014-3123) /uL [place] # (Auto) 500 (0-900) /uL Eos # (Auto) 300 (0-450) /uL Baso # (Auto) 0 (0-100) /uL Sodium 143 (137-145) mmol/L Potassium 4.4 (3.4-5.1) mmol/L Chloride 106 (98-107) mmol/L Carbon Dioxide 25 (22-32) mmol/L BUN 8 L (9-20) mg/dL Creatinine 0.89 (0.66-1.25) mg/dL Estimated GFR > 60 (>60) mL/min BUN/Creatinine Ratio 9.0 (6-22) Glucose 82 (70-100) mg/dL Calcium 9.0 (8.4-10.2) mg/dL Total Bilirubin 0.5 (0.2-1.3) mg/dL AST 55 (17-59) IU/L ALT 46 (<50) IU/L Alkaline Phosphatase 93 (38-126) U/L Total Protein 8.1 (6.3-8.2) g/dL Albumin 4.8 (3.5-5.0) g/dL Globulin 3.3 (1.7-4.1) g/dL Albumin/Globulin Ratio 1.5 (1.0-2.8) TSH 1.11 (0.47-4.68) uIU/mL U Opiates 300ng/mL cut Negative (Negative) Ur Oxycodone Screen Negative (Negative) Urine Methadone Screen Negative (Negative) Ur Barbiturates Screen Negative (Negative) U Tricyclic Antidepress Negative (Negative) Ur Phencyclidine Scrn Negative (Negative) Ur Amphetamines Screen Positive H (Negative) U Methamphetamines Scrn Positive H (Negative) Ur MDMA Scrn (Ecstasy) Negative (Negative) U Benzodiazepines Scrn Negative (Negative) Urine Cocaine Screen Negative (Negative) U Marijuana (THC) Screen Positive H (Negative) Urine pH Normal (Normal) Urine Specific [place] Normal (Normal) Ethyl Alcohol 254 H ( - 10) mg/dL Ur Creatinine Normal (Normal) Urine Dip Bedside Urine Glucose Negative Bedside Urine Bilirubin - Negative Bedside Urine Ketone - Negative Urine Specific [place] 1.020 Bedside Urine Occult Blood - Negative Bedside Urine pH 6.0 Bedside Urine Protein - Negative Bedside Urine Urobilinogen - Negative Bedside Urine Nitrite - Negative Bedside Urine Leukocytes - Negative Esterase MDM Narrative Medical decision making narrative: 43-year-old male with recent alcohol use had suicidal ideation, here for evaluation, seems cooperative, denies SI/HI to me, but seems willing to stay for evaluation with Electromechanical Equipment Assembler in the morning. Screening labs showed elevated alcohol level 254 at 1:20 a.m. Other screening labs unremarkable. 0700, socially responsible investment adviser consult later this morning if patient willing, signed out to Dr Olivo -on reassessment by myself as well as the social work team patient is now clinically sober, he states he has no HI, no SI no hallucinations, at this time his will give him a ride he has a safe disposition and not believe he needs further observation in the ED or psychiatric consultation. Social work cleared for discharge patient discharged from the ED Discharge Plan Departure Patient Disposition: Home Clinical Impression: Suicidal ideation, Alcohol intoxication Activity Restrictions/Additional Instructions: Please return to the emergency department if you have worsening symptoms and wished to be re-evaluated, thankfully your lab work was reassuring today if you have any further mental health are substance concerns please return to the ED for re-evaluation Prescriptions: No Action epinephrine [EpiPen 2-Luiz] 0.3 mg/0.3 mL auto-injector 0.3 ml IM ONCE Qty: 1 1RF Rx Instructions: as a single dose; may repeat once citalopram 40 mg tablet 20 mg PO DAILY Qty: 90 3RF Rx Instructions: Take 1/2 tab by mouth daily for depression and anxiety metoprolol succinate 25 mg tablet extended release 24 hr 25 mg PO DAILY Qty: 90 0RF Rx Instructions: Take one tablet by mouth daily for palpitations. Due for follow up appointment. Please call to schedule. Referrals: Melissa Bedolla ARNP [Primary Care Provider] - Stand Alone Forms: Patient Portal/API/Survey
[2024-10-02 02:31] LABS: TSH w/ Reflex to FT4 1.11 uIU/mL (0.47-4.68)
--- NOTE | 2024-10-02 04:50 | PC.NURSE ---
Talked with Dr. Khan, Informed him pt has been agreable and coorperative care. Dr Khan agrees with releasing the sitter and patient doesn't need 1:1.
--- NOTE | 2024-10-02 08:49 | PC.NURSE ---
Spoke with pt's , Nimo. She called for pt update. states that pt started using meth again a while ago and that he has been getting worse since best friend's recent terminal CA dx. is concerned for mental health and substance abuse and reports that she has school-age children in the home. supports inpatient mental health and substance abuse tx.
[2024-10-02 09:00] VITALS: RESP 16
[2024-10-02 11:50] VITALS: BP 125/91; PULSE 118; RESP 20; TEMP 36.3; O2SAT 97
--- NOTE | 2024-10-02 12:12 | CM.SWNOTE ---
ED FRAME SAMPLE AND PATTERN SUPERVISOR Assessment Note Patient is 43 y/o male who presents to ED via [employer] after welfare check due to concern for patient's intoxication, life stressors and SI statements. Per EMR, patient eloped ED last night and was brought back to ED with assistance for [employer]. Upon arrival, patient's BAL was 254, patient has positive for Methamphetamine, Amphetamines and Marijuana. Patient was seeing PCP Melissa Bedolla, patient does not have current insurance and previously had Medicaid insurance. FRAME SAMPLE AND PATTERN SUPERVISOR enters room to meet with patient, patient presents as A/Ox4, coherent and states he is hungover, detoxing and feeling stupid. Patient states he feels dumb. Patient states I made SI statements last night to hurt my . Patient denies SI, plans or intent to harm himself or anyone else. Patient states he wants to be there for his and three kids and presents with remorse for his actions and statements. Patient endorses he just wants to go home and be with his kids. Patient endorses that his best friend of 20 years is dying of terminal cancer and he has been self medicating with alcohol. Patient states that he relapsed and endorses he has been using Methamphetamine as well, patient endorses plan to stop using substances. Patient endorse in triage that he has been drinking whiskey all day for the last few weeks. Patient states that he was clean for a few years but relapsed during covid. Patient has hx of engaging with [facility], per EMR patient has hx of engaging with [facility] and hx of rx for Suboxone. Patient denies any current outpatient services and denies rx. Patient endorses interest in seeing a counselor. FRAME SAMPLE AND PATTERN SUPERVISOR inquires about patient's insurance and he endorses plan to set up state insurance or get on his 's insurance. Patient endorses he wants to call his and return home, patient calls and he reports that she is on her way to pick him up. Patient denies interest in detox at this time. Patient states he wants to go to dinner with his friend jon that is terminally ill. FRAME SAMPLE AND PATTERN SUPERVISOR provides patient with [facility] resources, provides that take state insurance as well as information about [facility] services, crisis contacts and lists of AA meetings. FRAME SAMPLE AND PATTERN SUPERVISOR reviews this with ED provider, patient is safe to d/c to home upon medical clearance. Plan: patient to d/c to home upon medical clearance with , patient to follow up with [facility] and MH resources provided. Marisabel Farrar, M[employer]I [employer]NS[employer]IP ASSESSOR
== END 2024-10-02 12:05 | disposition home or self-care (01) ==
PROVIDERS: Emergency Medicine; Emergency Provider Emergency Medicine; PCP Nurse Practitioner
DX: R45.851 Suicidal ideations (principal); F10.129 Alcohol abuse with intoxication, unspecified; Y90.8 Blood alcohol level of 240 mg/100 ml or more
CPT/HCPCS: 36415; 80053; 80305; 80320; 81003; 84443; 85025; 99284